=== PATIENT | male | born 1950 | race Caucasian/White ===

== ENCOUNTER 2019-12-14 05:48 | Outpatient (CLI) | payer MEDICARE, OTHER ==
[2019-12-14 16:43] LABS: #Eosinphils 0.2 thou/uL (0.0-0.7); #Lymphocytes 1.5 thou/uL (1.20-3.40); #Monocytes 0.5 thou/uL (0.11-0.59); #Neutrophils 3.6 thou/uL (1.40-6.50); %Basophils 0.4 % (0.0-1.0); %Eosinophils 3.6 % (0.0-10.0); %Lymphocytes 25.7 % (21.0-51.0); %Monocytes 8.3 % (0.0-10.0); Hemoglobin 14.8 g/dL (14.0-18.0); Mean Corpuscular HGB CONC 33.8 g/dL (32.0-36.0); Mean Corpuscular Hemoglobin 32.7 pg (27.0-31.0); Mean Corpuscular Volume 96.6 fL (78.0-98.0); Mean Platelet Volume 7.1 fL (7.4-10.4); Platelet Count 154 thou/uL (130-400); RBC Distribution Width 13.5 % (11.5-14.5); Red Blood Cell (RBC) Count 4.53 mill/uL (4.70-6.10); White Blood Cell (WBC) Count 5.8 thou/uL (4.8-10.8)
[2019-12-14 17:22] LABS: ALT (SGPT) 11 U/L (8-55); AST (SGOT) 19 U/L (5-34); Albumin 4.1 g/dL (3.4-4.8); Alkaline Phosphatase 79 U/L (40-110); Anion Gap 13 mmol/L (10-20); BUN (Urea Nitrogen) 10 mg/dL (8.4-25.7); Bilirubin, Total 0.9 mg/dL (0.2-1.2); Calc. Creatinine Clearance 0 mL/min (70-130); Calcium 8.9 mg/dL (7.8-10.44); Carbon Dioxide 25 mmol/L (23-31); Chloride 106 mmol/L (98-107); Estimated GFR-MDRD Greater than 90; Globulin 3.3 g/dL (2.4-3.5); Glucose 94 mg/dL (80-115); Protein, Total 7.4 g/dL (5.8-8.1); Sodium 140 mmol/L (136-145)
[2019-12-15 12:08] LABS: SARS-CoV-2 MS2 Positive; SARS-CoV-2 N Gene Negative; SARS-CoV-2 S Gene Negative; SARS-CoV-2 by NAA Not Detected (NotDetected); SARS-CoV-2 orf1ab Negative
== END 2019-12-14 05:49 | disposition home or self-care (01) ==
LOC: LABBT 05:48
PROVIDERS: ATTEND Internal Medicine Cardiovascular Disease
DX: Z01.812 Encounter for preprocedural laboratory examination (principal); Z11.59 Encounter for screening for other viral diseases
CPT/HCPCS: 80053; 85025; U0003; 87635

== ENCOUNTER 2020-02-15 07:34 | Outpatient (CLI) | payer MEDICARE, OTHER ==
[2020-02-15 14:12] LABS: Hemoglobin A1c 6.3 % (4.0-6.0)
[2020-02-15 14:15] LABS: Hemoglobin 15.2 g/dL (14.0-18.0); Mean Corpuscular HGB CONC 32.8 g/dL (32.0-36.0); Mean Corpuscular Hemoglobin 32.5 pg (27.0-31.0); Mean Corpuscular Volume 99.3 fL (78.0-98.0); Mean Platelet Volume 7.7 fL (7.4-10.4); Platelet Count 161 thou/uL (130-400); RBC Distribution Width 13.7 % (11.5-14.5); Red Blood Cell (RBC) Count 4.69 mill/uL (4.70-6.10); White Blood Cell (WBC) Count 5.5 thou/uL (4.8-10.8)
[2020-02-15 14:16] LABS: ALT (SGPT) 12 U/L (8-55); AST (SGOT) 19 U/L (5-34); Albumin 4.1 g/dL (3.4-4.8); Alkaline Phosphatase 90 U/L (40-110); Anion Gap 12 mmol/L (10-20); BUN (Urea Nitrogen) 16 mg/dL (8.4-25.7); Bilirubin, Direct 0.5 mg/dL (0.1-0.3); Calc. Creatinine Clearance 0 mL/min (70-130); Carbon Dioxide 27 mmol/L (23-31); Chloride 105 mmol/L (98-107); Estimated GFR-MDRD 69; Globulin 3.3 g/dL (2.4-3.5); Glucose 122 mg/dL (80-115); Potassium 4.1 mmol/L (3.5-5.1); Protein, Total 7.4 g/dL (5.8-8.1); Sodium 140 mmol/L (136-145)
[2020-02-15 14:38] LABS: INR-International Normal Ratio 1.1; PTT 31.1 sec (22.9-36.1); Prothrombin Time 14.8 sec (12.0-14.7)
[2020-02-15 15:37] LABS: Bacteria/HPF None Seen HPF (None Seen); Bilirubin Negative (Negative); Blood, Urine Negative (Negative); Clarity Extra Turbid (Clear); Glucose, Urine (Dipstick) 300 mg/dL (Negative); Ketone, Urine Negative (Negative); Leukocyte Negative Leu/uL (Negative); Nitrite Negative (Negative); Protein, Urine (Dipstick) 30 mg/dL (Neg-Trace); RBC/HPF 0-3 HPF (0-3); Specific Gravity, Urine 1.029 (1.002-1.036); Squamous Epithelial 0-3 HPF (0-3); WBC/HPF 0-3 HPF (0-3); pH, Urine 5.5 (5.0-9.0)
[2020-02-16 11:13] LABS: SARS-CoV-2 MS2 Positive; SARS-CoV-2 N Gene Negative; SARS-CoV-2 S Gene Negative; SARS-CoV-2 by NAA Not Detected (NotDetected); SARS-CoV-2 orf1ab Negative
== END 2020-02-15 07:35 | disposition home or self-care (01) ==
LOC: LABBT 07:34
PROVIDERS: ATTEND Urology
DX: Z01.812 Encounter for preprocedural laboratory examination (principal); D12.0 Benign neoplasm of cecum; Z20.828 Contact with and (suspected) exposure to other viral communicable diseases
CPT/HCPCS: 80053; 80076; 81001; 83036; 85027; 85610; 85730; 87086; 87635; U0003

== ENCOUNTER 2020-02-15 11:00 | Inpatient (IN) | payer MEDICARE ==
[2020-02-15 13:41] VITALS: BMI 39.5
[2020-02-19] MEDS ORDERED: Famotidine/PF 20 mg/2ml Vial ONE (06:17)
[2020-02-19] MEDS ORDERED: Fentanyl 100 MCG/2 ML VIAL ONE (06:17)
[2020-02-19] MEDS ORDERED: SUGAMMADEX SODIUM 500 MG/5 ML VIAL ONE (07:17)
[2020-02-19] MEDS ORDERED: cefOXitin Sodium/Dextrose 2 GM/50 ML BAG ONE ×2 (07:24→10:01)
[2020-02-19] MEDS ORDERED: CEFAZOLIN 1 GM VIAL ONE (07:24)
[2020-02-19] MEDS ORDERED: Sodium Chloride 0.9% 100 ML ONE (07:25)
[2020-02-19] MEDS ORDERED: Bupivacaine 0.25% 10 ML VIAL EPIDURAL PRN (08:00)
[2020-02-19] MEDS ORDERED: diphenhydrAMINE 50 MG/ML VIAL IM PRN (08:00)
[2020-02-19] MEDS ORDERED: Ondansetron PF 4 MG/2 ML Vial IVP PRN ×2 (08:00→10:43)
[2020-02-19] MEDS ORDERED: Hydrocerin (Eucerin) Cream 120 gm Jar TOP PRN (08:00)
[2020-02-19] MEDS ORDERED: Naloxone HCl 0.4 mg/ml Vial IVP PRN (08:00)
[2020-02-19] MEDS ORDERED: Naloxone HCl 0.4 mg/ml Vial IV PRN (08:00)
[2020-02-19] MEDS ORDERED: Promethazine HCl 25 MG/ML VIAL IM PRN ×3 (08:00→10:43)
[2020-02-19] MEDS ORDERED: traMADol HCl 50 MG TAB PO PRN ×2 (08:00)
[2020-02-19] MEDS ORDERED: HYDROcodone/Acetaminophen 5/325 mg Tablet PO PRN ×2 (08:00)
[2020-02-19] MEDS ORDERED: Promethazine HCl 25 MG SUPP PR PRN (08:00)
[2020-02-19] MEDS ORDERED: Bupivacaine 0.25% HCL 30 ML VIAL ONE (08:17)
[2020-02-19] MEDS ORDERED: Bupivacaine/Epinephrine 0.25% 30 ML VIAL ONE (08:51)
--- NOTE | 2020-02-19 09:57 | HP ---
CHIEF COMPLAINT: Unresectable polyp of cecum. HISTORY OF PRESENT ILLNESS: The patient is a 69-year-old male, who had undergone a colonoscopy showing a large polyp that extended into the appendiceal orifice. Biopsy was hyperplastic, but not resectable. He has had a laparotomy for a perforated ulcer and peritonitis. PAST MEDICAL HISTORY: Significant for eye surgery, tetanus vaccine, flu vaccine, hypertension, coronary artery disease, back problems. PAST SURGICAL HISTORY: He has had cholecystectomy and hernia repair. He had coronary artery bypass graft, cataract lens implants, had a laparotomy, partial gastrectomy. He had a knee replacement, excision of skin cyst. He has had a sleeve gastrectomy and had shoulder surgery. FAMILY HISTORY: Noncontributory. SOCIAL HISTORY: . No tobacco or alcohol. ALLERGIES: NO KNOWN DRUG ALLERGIES. PHYSICAL EXAMINATION: VITAL SIGNS: Height is 67.5, weight 257. Body mass index 39.6. GENERAL: This is an obese male, in no apparent distress. HEENT: Unremarkable. LUNGS: Clear. HEART: Regular rate and rhythm. ABDOMEN: There is a hypertrophic midline scar. No hernias. EXTREMITIES: Good pulses. No pedal edema. Unremarkable. ASSESSMENT: Large polyp of cecum. PLAN: Ileocecectomy. CONSENT: I have discussed planned procedure as well as risk of bleeding, infection, injury to bowel or bladder, leakage from anastomosis. He understands and gives informed consent. Job ID: [id number]
[2020-02-19] MEDS ORDERED: ceFOXitin 1 GM VIAL ONE (10:01)
[2020-02-19] MEDS ORDERED: Promethazine HCl 25 MG/ML VIAL SLOW IVP PRN (10:23)
[2020-02-19] MEDS ORDERED: Ondansetron HCl/PF 4 MG/2 ML Vial IVP PRN (10:23)
[2020-02-19] MEDS ORDERED: hydrALAZINE 20 MG/ML VIAL SLOW IVP PRN (10:43)
[2020-02-19] MEDS ORDERED: Morphine 4 MG/ML VIAL SLOW IVP PRN (10:43)
[2020-02-19] MEDS ORDERED: Morphine 10 MG/ML VIAL SLOW IVP PRN (10:43)
[2020-02-19] MEDS ORDERED: Morphine 2 MG/ML VIAL SLOW IVP PRN (10:43)
[2020-02-19] MEDS ORDERED: Dextrose 50% Abboject 50 ML SYRINGE SLOW IVP PRN (10:46)
[2020-02-19] MEDS ORDERED: Insulin Regular 300 UNITS/3 ML VIAL SC PRN (10:46)
[2020-02-19] MEDS ORDERED: Dextrose 5% in Water 1,000 ML IV PRN (10:46)
[2020-02-19] MEDS ORDERED: PHENYLEPHRINE-NS 100 MCG/ML 10 ML SYRINGE ONE (10:53)
[2020-02-19] MEDS ORDERED: Lidocaine 1.5% w/Epi 1:200K 30 ML VIAL (Epid Use) ONE (10:53)
[2020-02-19] MEDS ORDERED: Lidocaine 1% PF 5 ML VIAL ONE (10:53)
[2020-02-19] MEDS ORDERED: Glycopyrrolate 0.2 MG/ML 5 ML SYRINGE ONE (10:53)
[2020-02-19] MEDS ORDERED: Metoclopramide HCl 10 MG/2 ML VIAL ONE (10:53)
[2020-02-19] MEDS ORDERED: PROPOFOL 200 MG/20 ML VIAL ONE (10:53)
[2020-02-19] MEDS ORDERED: Ketorolac Tromethamine 30 MG/ML VIAL ONE (10:53)
[2020-02-19] MEDS ORDERED: Rocuronium Bromide 10 MG/ML (10ML VIAL) ONE (10:53)
[2020-02-19] MEDS ORDERED: Ondansetron PF 4 MG/2 ML Vial ONE (10:53)
[2020-02-19] MEDS: Ketorolac Tromethamine 30 MG/ML VIAL IVP SCH ×3 (12:34→23:12)
--- NOTE | 2020-02-19 15:19 | OP ---
DATE OF PROCEDURE: 02/19/2020 SERVICE: Urology. PREOPERATIVE DIAGNOSIS: Bilateral hydroceles. POSTOPERATIVE DIAGNOSIS: Bilateral hydroceles. PROCEDURE PERFORMED: Bilateral hydrocelectomy in a Jaboulay fashion. INDICATION FOR PROCEDURE: Mr. Valencia is a 69-year-old white male, who has a cecal polyp as well as bilateral hydroceles. He had elected to have a partial colectomy performed by Dr. Goodrich, concurrently with his bilateral hydrocele surgery. Risks and benefits were discussed and he has agreed to proceed forward. DESCRIPTION OF PROCEDURE: After identification of armband and verification of consent, the patient was brought back to the operating room, where he underwent general anesthesia with endotracheal intubation. He had an epidural placed preoperatively for pain control. He was then left in the supine position and prepped and draped in usual sterile fashion. After appropriate time-out, an incision was made on the midline of the scrotum along the median raphae using a 15 blade. Dissection was carried down through the scrotum using a combination of electrocautery along with sharp dissection. There was a mild amount of scrotal edema already present within the scrotum. Attention was then turned towards the left side and an incision was deviated away from the medial septum towards the left side. We went through the external internal spermatic fascia and cremasteric until the tunica vaginalis was identified. Dissection was then carried out between the internal spermatic fascia and tunica vaginalis until the entire hydrocele could be delivered outside the patient's body. The remaining tissues were swept away using a combination of blunt dissection and cautery dissection. Once the hydrocele was seen emanating from a clear stalk, the hydrocele was opened anteriorly, taking care to avoid the testicle, approximately 400 mL of straw-colored fluid was drained out of the left scrotum. The testicle appeared grossly normal without abnormalities. The appendix testis was removed. The tunica vaginalis was completely opened and then excised off taking care to avoid the epididymis for epididymal injury. Hemostasis was performed along the edge of the tunica vaginalis and then the edges of the tunica vaginalis were then marsupialized posteriorly beyond the testicle using a 4-0 Vicryl interrupted fashion. Meticulous hemostasis was performed of any additional bleeding areas and the testicle re-delivered back into the scrotum and irrigated out. Attention was turned to the right side using Allis clamps to hold the medial septum up, the dissection was carried out in the same fashion on the right side to clear out the right hemiscrotum. Once the tunica vaginalis was identified, dissection was carried out along the tunica vaginalis until the hydrocele sac could be delivered outside the hemiscrotum on the right side. In the same fashion, the hydrocele sac was entered anteriorly to avoid testicular injury, approximately 300 mL of straw-colored fluid drained out on this side and then irrigated away. The tunica vaginalis was then opened completely. The tunica vaginalis was then excised off the cord and sent off for routine pathologic evaluation along with the other tunic vaginalis from the contralateral side. This was then marsupialized in the same fashion as the other side using a 4-0 Vicryl interrupted fashion on the posterior aspect of the testicle. Meticulous hemostasis performed with any bleeding points along with the edges of the tunica vaginalis, which was also cauterized prior to the marsupialization. Once excellent hemostasis was achieved, the appendix testis was removed and the testicle re-delivered back into the scrotum. Using just a finger to identify a location to make a hole in the septum, a small hole was made with Bovie electrocautery for placement of a drain, the drain was inserted initially on the left inferior scrotum and then brought through a small loop made through the tissue to hold it in place of the internal spermatic fascia and then passed through the septum into the right hemiscrotum. The drain was sutured with a 3-0 nylon on the outside of the patient's body. After a thorough irrigation, the left hemiscrotum was initially closed using a 2-0 Vicryl to close the dartos and spermatic fascias and then, another 2-0 Vicryl was used to do the same thing on the right to close that side. The skin was then closed with a 4-0 Monocryl. Once cleaned up and all blood had been removed, Dermabond was applied. A Pal catheter was inserted into the patient under the sterile field with 10 mL of sterile water placed into the balloon. At this point, the patient was then had the drapes taken down and patient was began to be prepped in position for Dr. Goodrich's portion of the surgery for the partial colectomy. This will be dictated separately in Dr. Goodrich's operative report. For my portion of procedure; COMPLICATIONS: None. ESTIMATED BLOOD LOSS: Minimal. RETAINED TUBES AND DRAINS: A 10-Afghan JANET drain. SPECIMENS: Bilateral tunica vaginalis. DISPOSITION: The patient will undergo his surgery with Dr. Goodrich. Postoperatively, he will be admitted to Dr. Goodrich's service. The drain will probably need to stay in for approximately 5 to 7 days at which point, if the patient is still in the hospital, we can remove the drain. If he is discharged, we will remove the drain as an outpatient. Job ID: [id number]
[2020-02-19] MEDS ORDERED: cefOXitin 2 GM in Sodium Chloride 0.9% 100 ML IVPB SCH (16:00)
[2020-02-19] MEDS: Sodium Chloride 0.9% 1,000 ML IV SCH ×2 (16:35→21:11)
[2020-02-19] MEDS: cefOXitin Sodium/Dextrose,Iso 2 GM in Premix Bag 1 BAG IVPB SCH (17:24)
--- NOTE | 2020-02-19 18:04 | EKG ---
Test Reason : Blood Pressure : / mmHG Vent. Rate : 080 BPM Atrial Rate : 093 BPM P-R Int : 000 ms QRS Dur : 150 ms QT Int : 418 ms P-R-T Axes : 000 -38 129 degrees QTc Int : 482 ms Atrial fibrillation Left axis deviation Left bundle branch block Abnormal ECG No previous ECGs available Confirmed by DR. Gerri GALLAGHER ([id number]) on 02/19/2020 6:03:59 PM Referred By: ANDREW Confirmed By:DR. Gerri GALLAGHER
[2020-02-19] MEDS: Famotidine/PF 20 mg/2ml Vial SLOW IVP SCH (21:02)
[2020-02-19] MEDS: Famotidine 20 MG TAB PO SCH (21:05)
[2020-02-19] MEDS: Zolpidem Tartrate 5 MG TAB PO PRN (21:11)
[2020-02-19] MEDS: fentaNYL Citrate/PF 500 MCG, Bupivacaine 10 ML in Sodium Chloride 0.9% 80 ML EPIDURAL SCH (23:13)
[2020-02-20] MEDS: cefOXitin Sodium/Dextrose,Iso 2 GM in Premix Bag 1 BAG IVPB SCH (00:12)
[2020-02-20] MEDS: Sodium Chloride 0.9% 1,000 ML IV SCH ×3 (04:20→20:47)
[2020-02-20] MEDS: diphenhydrAMINE 50 MG/ML VIAL IVP PRN ×2 (04:20→12:14)
[2020-02-20 05:42] LABS: #Eosinphils 0.1 thou/uL (0.0-0.7); #Lymphocytes 0.7 thou/uL (1.20-3.40); #Monocytes 0.4 thou/uL (0.11-0.59); #Neutrophils 4.4 thou/uL (1.40-6.50); %Basophils 0.5 % (0.0-1.0); %Lymphocytes 12.5 % (21.0-51.0); %Monocytes 7.6 % (0.0-10.0); %Neutrophils 78.5 % (42.0-75.0); Hemoglobin 13.7 g/dL (14.0-18.0); Mean Corpuscular HGB CONC 33.3 g/dL (32.0-36.0); Mean Corpuscular Hemoglobin 32.6 pg (27.0-31.0); Mean Corpuscular Volume 98.1 fL (78.0-98.0); Platelet Count 121 thou/uL (130-400); RBC Distribution Width 13.5 % (11.5-14.5); Red Blood Cell (RBC) Count 4.21 mill/uL (4.70-6.10); White Blood Cell (WBC) Count 5.6 thou/uL (4.8-10.8)
[2020-02-20] MEDS: Ketorolac Tromethamine 30 MG/ML VIAL IVP SCH ×4 (05:46→23:26)
[2020-02-20 06:02] LABS: Anion Gap 12 mmol/L (10-20); BUN (Urea Nitrogen) 14 mg/dL (8.4-25.7); Calc. Creatinine Clearance 117 mL/min (70-130); Calcium 7.9 mg/dL (7.8-10.44); Carbon Dioxide 27 mmol/L (23-31); Chloride 104 mmol/L (98-107); Estimated GFR-MDRD 75; Glucose 104 mg/dL (80-115); Potassium 3.5 mmol/L (3.5-5.1); Sodium 139 mmol/L (136-145)
--- NOTE | 2020-02-20 06:48 | PDOC.GSPN ---
Surgery Progress Note: Subj - Subjective Patient reports: no new complaints, pain well controlled, no bowel movement, no flatus Surgery Progress Note: Obj - Vital signs Vital signs: Vital Signs - Most Recent Temp Pulse Resp BP Pulse Ox 98.4 F 99 16 124/76 92 L 02/20/20 04:05 02/20/20 04:05 02/20/20 04:05 02/20/20 04:05 02/20/20 04:05 - Physical Exam General: no distress, no pain Cardiovascular: regular rate and rhythm Respiratory: clear to auscultation, normal expansion Abdomen: soft, non tender, nondistended, other (Abdominal sutures and dressing intact. Small amount of blood on dressing. No increased pain at incision site.) Hernia: none Genitourinary (Male): other (Scrotal incision appears to be healing well. No erythema or purulence. Small amount of blood in drain.) Surgery Progress Note: Results - Labs Result Diagrams: 02/20/20 05:09 02/20/20 05:09 Lab results: Laboratory Results - last 12 hr 02/19/20 02/20/20 02/20/20 20:39 00:09 05:08 WBC RBC Hgb Hct MCV MCH MCHC RDW Plt Count MPV Neutrophils % Lymphocytes % Monocytes % Eosinophils % Basophils % Neutrophils # Lymphocytes # Monocytes # Eosinophils # Basophils # Sodium Potassium Chloride Carbon Dioxide Anion Gap BUN Creatinine Estimated GFR (MDRD) Glucose POC Glucose 103 H 114 H 107 H Calcium 02/20/20 02/20/20 05:09 05:09 WBC 5.6 RBC 4.21 L Hgb 13.7 L Hct 41.3 L MCV 98.1 H MCH 32.6 H MCHC 33.3 RDW 13.5 Plt Count 121 L MPV 7.0 L Neutrophils % 78.5 H Lymphocytes % 12.5 L Monocytes % 7.6 Eosinophils % 1.0 Basophils % 0.5 Neutrophils # 4.4 Lymphocytes # 0.7 L Monocytes # 0.4 Eosinophils # 0.1 Basophils # 0.0 Sodium 139 Potassium 3.5 Chloride 104 Carbon Dioxide 27 Anion Gap 12 BUN 14 Creatinine 0.99 Estimated GFR (MDRD) 75 Glucose 104 POC Glucose Calcium 7.9 Surgery Progress Note: A/P - Plan Plan: Patient is s/p bilateral hydrocelectomy and right sided hemicolectomy. Patient is doing well and pain is well controlled on epidural pain pump. Will advance diet to clear liquids today as tolerated. Monitor for bowel movement or increased abdominal pain. Continue regular wound care and dressing changes.
--- NOTE | 2020-02-20 06:52 | OP ---
DATE OF PROCEDURE: 02/19/2020 PREOPERATIVE DIAGNOSIS: Cecal polyp. PROCEDURE PERFORMED: Open right hemicolectomy. INDICATIONS: This is a 69-year-old male, who on colonoscopy was found to have a polyp at the appendiceal orifice. Biopsy was hyperplastic. FINDINGS: 1 cm polyp at the appendiceal orifice. DESCRIPTION OF PROCEDURE: After informed consent was obtained, the patient was taken to the operating room and given general endotracheal anesthesia, placed in the supine position. Abdomen was prepped and draped in usual fashion. A transverse right lateral incision was performed. Subcu divided sharply. The fascia was incised. The muscle was divided, the peritoneum opened. The right colon was mobilized sharply and delivered. The ileum was divided utilizing a JUNIOR and then the colon was divided utilizing a JUNIOR and the mesentery divided with the LigaSure. The specimen was opened in the operating room. There was a polyp present at the ileocecal valve. This was sent to Pathology for further analysis. Hemostasis was assured. A [id number] pro-peristaltic functional end-to-end anastomosis was performed. An enterotomy was performed in the antimesenteric aspect of the ileum and also antimesenteric staple line was excised. The JUNIOR 75 was inserted, one limb in each limb of bowel, approximated, closed, and fired. The common enterotomy was closed transversely with a 3-0 Stratafix. The mesentery was closed with interrupted 3-0 Vicryl. Hemostasis was assured. The abdomen was thoroughly irrigated and irrigation fluid removed. The abdominal wall was closed in layers, posterior layer with running 2-0 Vicryl, anterior layer with 2-0 Vicryl, Deepak's with interrupted 3-0 Vicryl, and the skin closed with a running subcuticular 4-0 Rapide. Steri-Strips applied. Sterile bandage applied. The patient tolerated the procedure well, transferred to Recovery in good condition. Sponge and needle count verified correct x2. Job ID: [id number]
--- NOTE | 2020-02-20 08:22 | PRG ---
DATE OF SERVICE: 02/20/2020 SUBJECTIVE: The patient is feeling good. His pain is minimal. No nausea or vomiting. Feels hungry. OBJECTIVE: VITAL SIGNS: His temperature is 98.4, pulse 99, blood pressure 124/76. GENERAL: He is awake, alert. ABDOMEN: Soft, nontender. His incision is healing well. There were a couple of sanguinous spots that are dry on his bandage. His bandage was changed. No evidence of infection. ASSESSMENT: Doing well. PLAN: Discontinue Pal. Ambulate sips of clear liquids. Job ID: [id number]
[2020-02-20] MEDS: Famotidine 20 MG TAB PO SCH ×2 (08:28→20:47)
[2020-02-20] MEDS: Famotidine/PF 20 mg/2ml Vial SLOW IVP SCH ×2 (08:28→20:47)
[2020-02-20] MEDS ORDERED: FLU VACC QS2020-21(65YR UP)/PF 240 MCG/0.7 ML SYRINGE IM ONE (09:00)
[2020-02-20] MEDS ORDERED: Enoxaparin Sodium 40 MG/0.4 ML SYRINGE SC SCH (09:00)
[2020-02-20] MEDS: fentaNYL Citrate/PF 500 MCG, Bupivacaine 10 ML in Sodium Chloride 0.9% 80 ML EPIDURAL SCH ×2 (12:36→23:53)
--- NOTE | 2020-02-20 13:46 | PRG ---
DATE OF SERVICE: 02/20/2020 SUBJECTIVE: The patient states he is feeling very good. He has minimal pain. His epidural is working very well. He has a Pal catheter in, which apparently has been draining fine. He is not complaining of any pain. OBJECTIVE: VITAL SIGNS: Temperature 98.5, pulse respirations 20, blood pressure 135/79, saturations 94% on room air. GENERAL: In no apparent distress. Communicative, alert. CARDIOVASCULAR: Regular rate and rhythm. ABDOMEN: Soft, nontender, and nondistended. Incision is currently dressed with a small amount of spotting of blood. : Pal catheter in place, draining jennifer-colored urine. Scrotum is mildly edematous, nontender. Incision is clean, dry, and intact. JANET has serosanguineous output. EXTREMITIES: Stable. Mild edema bilaterally. LABORATORY EVALUATION: The full set of labs is in the [facility] system, which I have reviewed. Of note, white count is 5.6, hemoglobin 13.7. Creatinine of 0.99. ASSESSMENT AND PLAN: A 69-year-old white male with a cecal polyp as well as bilateral hydrocele, status post bilateral hydrocelectomies and partial colectomy by Dr. Goodrich, postop day #1. The patient appears to be doing very well from my standpoint. His catheter can be removed whenever it is appropriate by the General Surgery team, most likely after his epidural has been removed. I would recommend he keep the JANET drain in for several days. Before the patient is ready for discharge, I would like to come back and see the patient to see how much drain output he is having from his scrotum. If it is moderate to significant, I will have him discharged with a JANET drain in place and remove it in the office on his followup. If, however, he has [id number] output from his JANET drain, I will remove it prior to his discharge. Please notify me when the patient is ready to be discharged. Otherwise, there is nothing further I would need to add at the current time other than the patient should continue wearing his jockstrap while he is in the hospital. Job ID: [id number]
[2020-02-20] MEDS: diphenhydrAMINE 25 MG CAP PO PRN (17:07)
[2020-02-21] MEDS: Sodium Chloride 0.9% 1,000 ML IV SCH ×4 (05:02→23:31)
[2020-02-21] MEDS: Ketorolac Tromethamine 30 MG/ML VIAL IVP SCH (05:03)
[2020-02-21] MEDS: Famotidine/PF 20 mg/2ml Vial SLOW IVP SCH ×3 (09:44→21:16)
[2020-02-21] MEDS: Famotidine 20 MG TAB PO SCH ×2 (09:44→20:53)
[2020-02-21] MEDS: diphenhydrAMINE 25 MG CAP PO PRN ×2 (09:47→18:42)
[2020-02-21] MEDS: fentaNYL Citrate/PF 500 MCG, Bupivacaine 10 ML in Sodium Chloride 0.9% 80 ML EPIDURAL SCH (13:06)
--- NOTE | 2020-02-21 17:25 | PDOC.FMACP ---
Advance Care Planning - Problem (1) Palliative care encounter Status: Acute Code(s): Z51.5 - ENCOUNTER FOR PALLIATIVE CARE (2) Perforated ulcer Status: Acute Code(s): K27.5 - CHRONIC OR UNSP PEPTIC ULCER, SITE UNSP, WITH PERFORATION - Note Participants: patient, palliative care Summary: Revisited Advanced Care Planning, opportunity to decline. The diagnosis, prognosis and goals of care were discussed. Appropriate forms and documentation to accomplish the goals of care were discussed. [place] confirmed the directive to physician on record remain correct and his spouse is surrogate decision maker if needed. Continue currently with all aggressive measures. The Palliative Care Team will assist with completion of any outstanding forms as identified. Time Spent (mins): 15
[2020-02-21] MEDS ORDERED: cloNIDine 0.1 MG TAB PO SCH (20:45)
[2020-02-21] MEDS: diphenhydrAMINE 50 MG/ML VIAL IVP PRN (21:11)
[2020-02-21] MEDS: Zolpidem Tartrate 5 MG TAB PO PRN (21:12)
[2020-02-21] MEDS: Enoxaparin Sodium 40 MG/0.4 ML SYRINGE SC SCH (21:15)
[2020-02-21 23:56] LABS: #Eosinphils 0.2 thou/uL (0.0-0.7); #Lymphocytes 0.7 thou/uL (1.20-3.40); #Monocytes 0.4 thou/uL (0.11-0.59); #Neutrophils 3.5 thou/uL (1.40-6.50); %Basophils 0.9 % (0.0-1.0); %Eosinophils 3.6 % (0.0-10.0); %Lymphocytes 14.5 % (21.0-51.0); %Monocytes 8.1 % (0.0-10.0); Hemoglobin 13.1 g/dL (14.0-18.0); Mean Corpuscular HGB CONC 33.7 g/dL (32.0-36.0); Mean Corpuscular Hemoglobin 32.8 pg (27.0-31.0); Mean Corpuscular Volume 97.3 fL (78.0-98.0); Mean Platelet Volume 7.4 fL (7.4-10.4); Platelet Count 108 thou/uL (130-400); RBC Distribution Width 13.1 % (11.5-14.5); White Blood Cell (WBC) Count 4.7 thou/uL (4.8-10.8)
[2020-02-22 00:11] LABS: Anion Gap 11 mmol/L (10-20); BUN (Urea Nitrogen) 7 mg/dL (8.4-25.7); Calc. Creatinine Clearance 155 mL/min (70-130); Calcium 7.7 mg/dL (7.8-10.44); Carbon Dioxide 24 mmol/L (23-31); Chloride 105 mmol/L (98-107); Estimated GFR-MDRD Greater than 90; Glucose 105 mg/dL (80-115); Potassium 3.5 mmol/L (3.5-5.1); Sodium 136 mmol/L (136-145)
[2020-02-22] MEDS ORDERED: Furosemide 40 MG TAB PO PRN (00:21)
[2020-02-22] MEDS: fentaNYL Citrate/PF 500 MCG, Bupivacaine 10 ML in Sodium Chloride 0.9% 80 ML EPIDURAL SCH (00:30)
--- NOTE | 2020-02-22 03:26 | CON ---
DATE OF CONSULTATION: TIME OF ASSESSMENT: 2099. REFERRING PHYSICIAN: Dr. Goodrich. REASON FOR CONSULTATION: Medical management. CHIEF COMPLAINT: None. HISTORY OF PRESENT ILLNESS: Mr. Valencia is a 69-year-old gentleman who is status post open right hemicolectomy done 02/19/2020 after undergoing a colonoscopy that showed a large polyp extending into the appendiceal orifice that could not be removed via scope. He has a history of undergoing laparotomy for perforated ulcer and peritonitis. The procedure today was done by Dr. Goodrich. He also had bilateral hydrocelectomy done by Dr. High today. The patient states that the scrotal swelling has improved significantly and he denies any associated discomfort. He has a JANET drain in place, which he states will be removed tomorrow. He has a history of hypertension, diabetes, CAD, hyperlipidemia, and chronic atrial fibrillation. Apparently, his blood pressure has been elevated today and we have been consulted for medical management. The patient states he feels well at this moment and denies any complaints. He has been tolerating oral intake and had some soup without any nausea or vomiting. Denies any abdominal discomfort. He has been passing flatus. Denies any bowel movement yet. No urinary symptoms. No headaches or dizziness. No chest pain, palpitations, or shortness of breath. All other review of systems are negative. Of note, the patient underwent a catheterization on 12/19/[address] Aggarwal during which he was found to have 85% stenosis of proximal LAD, 45% stenosis of distal LAD, 75% stenosis of first OM, and 60% stenosis of proximal circumferential, 90% stenosis of mid RCA. He has severe multivessel disease with patent graft to LAD, RCA and OMB. The EF was 40% to 45% on recent echo. PAST MEDICAL HISTORY: 1. Hyperlipidemia. 2. Hypertension. 3. Type 2 diabetes mellitus. 4. Erectile dysfunction. 5. CAD. 6. PAD. 7. Chronic atrial fibrillation. 8. Aortic stenosis. 9. Cardiomyopathy. PAST SURGICAL HISTORY: 1. CABG x3. 2. Cholecystectomy. 3. Hernia repair. 4. Cataract extraction. 5. Right shoulder replacement. 6. Left knee replacement. 7. Right knee replacement. 8. Repair of an ulcer in 2017. 9. Pericardial window after CABG in 2007. 10. Laparotomy for a perforated ulcer and peritonitis. 11. Open right hemicolectomy on 02/19/2020. 12. Bilateral hydrocelectomy, 02/19/2020. 13. Gastric sleeve. 14. Excision of a skin cyst. FAMILY HISTORY: Noncontributory. Father , emphysema. His brother had an IL in the past. Mother . SOCIAL HISTORY: The patient is . Lives with his . Denies any tobacco use, alcohol consumption, or illicit drug use. ALLERGIES: NO KNOWN DRUG ALLERGIES. CURRENT MEDICATIONS: 1. Hydrocodone. 2. Tramadol. 3. Lyrica. 4. Furosemide 40 mg p.o. daily. 5. Celebrex. 6. Pantoprazole 40 mg p.o. daily. 7. Metformin. 8. Eliquis. 9. Metoprolol succinate. 10. Simvastatin. PHYSICAL EXAMINATION: GENERAL: The patient appears well developed, well nourished, and resting comfortably. He is in no acute distress. VITAL SIGNS: Temperature 98.4, pulse 75, respirations 18, O2 saturation 97% on room air. Blood pressure 171/114, repeat was 157/106. HEENT: Normocephalic and atraumatic. Pupils are equal, round, and reactive to light. Sclerae icterus. Oropharynx is clear. NECK: Supple. CARDIAC: Normal heart sounds, S1, S2. LUNGS: Clear to auscultation bilaterally without wheezes, rales, or rhonchi. ABDOMEN: Soft, obese, slightly distended, but nontender. Dressing to the right side of abdomen with no signs of infection or excessive bleeding. Bowel sounds present. EXTREMITIES: Notable for +1 edema bilaterally. NEUROLOGIC: Alert and oriented x3. : The patient with edema of the scrotum, nontender. JANET drain in place with serosanguineous output. IMPRESSION AND PLAN: Mr. Valencia is status post open right hemicolectomy and bilateral hydrocelectomy done today who has been referred for medical management of the following. 1. Hypertension. Home medications have been reconciled. However, he is not normally due for any blood pressure medications this evening. He was given clonidine 0.1 mg p.o. x1. He does have IV fluids going at a rate of 120 mL/h. Given the elevated blood pressure and the history of heart failure/fluid retention for which he takes Lasix at home, we will reduce the IV fluids to 75 mL an hour. We will repeat labs including BNP. Continue to monitor blood pressure. 2. Diabetes mellitus. Monitor blood glucose. Continue insulin sliding scale. 3. Cardiomyopathy. As mentioned, we will decrease IV fluids to 75 an hour. We will resume Lasix if appropriate pending repeat renal function, to be done this evening. We will check BNP. 4. Chronic atrial fibrillation. The patient has been off Eliquis since 02/14/2020 in preparation for surgery. We will obtain repeat baseline EKG. Day Team to decide when the patient may resume his Eliquis. It appears he has been started on DVT prophylaxis with Lovenox 40 mg subcutaneous since yesterday evening. This has already been given today. Consider restarting Eliquis tomorrow morning. Restart home medications as appropriate. 5. Gastrointestinal prophylaxis with famotidine. 6. Hyperlipidemia. Statin has been restarted. Thank you for this consultation. We will continue to follow this patient with you. Case discussed with the attending who agrees with plan of care as described above. Job ID: [id number]
[2020-02-22 06:34] LABS: Anion Gap 10 mmol/L (10-20); BUN (Urea Nitrogen) 7 mg/dL (8.4-25.7); Calc. Creatinine Clearance 166 mL/min (70-130); Calcium 7.6 mg/dL (7.8-10.44); Carbon Dioxide 23 mmol/L (23-31); Chloride 107 mmol/L (98-107); Estimated GFR-MDRD Greater than 90; Glucose 83 mg/dL (80-115); Potassium 3.7 mmol/L (3.5-5.1); Sodium 136 mmol/L (136-145)
[2020-02-22 07:00] LABS: #Eosinphils 0.2 thou/uL (0.0-0.7); #Monocytes 0.5 thou/uL (0.11-0.59); #Neutrophils 2.9 thou/uL (1.40-6.50); %Eosinophils 4.6 % (0.0-10.0); %Lymphocytes 22.1 % (21.0-51.0); %Monocytes 9.8 % (0.0-10.0); %Neutrophils 63.5 % (42.0-75.0)
[2020-02-22 07:09] LABS: Hemoglobin 13.2 g/dL (14.0-18.0); Mean Corpuscular HGB CONC 33.1 g/dL (32.0-36.0); Mean Corpuscular Hemoglobin 33.3 pg (27.0-31.0); Mean Platelet Volume 7.2 fL (7.4-10.4); Platelet Count 94 thou/uL (130-400); RBC Distribution Width 13.1 % (11.5-14.5); Red Blood Cell (RBC) Count 3.96 mill/uL (4.70-6.10); White Blood Cell (WBC) Count 4.5 thou/uL (4.8-10.8)
[2020-02-22] MEDS: Famotidine 20 MG TAB PO SCH ×2 (08:03→20:45)
[2020-02-22] MEDS: Pregabalin 75 MG CAP PO SCH (08:04)
[2020-02-22] MEDS: diphenhydrAMINE 25 MG CAP PO PRN (08:04)
[2020-02-22] MEDS: Atorvastatin Calcium 10 MG TAB PO SCH (08:04)
[2020-02-22] MEDS: Famotidine/PF 20 mg/2ml Vial SLOW IVP SCH (08:34)
[2020-02-22 08:58] LABS: MDiff Complete? YES
[2020-02-22] MEDS: Sodium Chloride 0.9% 1,000 ML IV SCH (09:15)
--- NOTE | 2020-02-22 11:52 | PDOC.HOSPP ---
- Subjective Encounter Date: 02/22/20 Encounter Time: 09:50 Subjective: is sitting in chair, no sob says he always has some edema in his legs he sees for cardiology is passing flatus no bm yet, is ambulating in room at bedside - Objective Vital Signs & Weight: Vital Signs (12 hours) Temp Pulse Resp BP Pulse Ox 02/22/20 08:00 98.4 F 78 18 143/95 H 96 02/22/20 04:00 98.3 F 78 17 143/95 H 93 L Weight Weight 260 lb I&O: 02/21/20 02/22/20 02/23/20 06:59 06:59 06:59 Intake Total 3280 3925 Output Total 605 1625 Balance 2675 2300 Result Diagrams: 02/22/20 04:29 02/22/20 04:23 Additional Labs: Accuchecks 02/22/20 02/22/20 02/21/20 10:47 05:57 23:16 POC Glucose 129 H 86 103 H 02/21/20 15:29 POC Glucose 73 Hospitalist ROS - Medication Medications: Active Medications Generic Name Dose Route Start Last Admin Trade Name Freq PRN Reason Stop Dose Admin Atorvastatin Calcium 10 mg 02/22/20 09:00 02/22/20 08:04 Atorvastatin Calcium 10 Mg Tab PO 10 mg QAM GUME Administration Diphenhydramine HCl 25 mg 02/19/20 08:00 02/22/20 08:04 Diphenhydramine 25 Mg Cap PO 25 mg Q3H PRN Administration Itching Diphenhydramine HCl 25 mg 02/19/20 08:00 02/21/20 21:11 Diphenhydramine 50 Mg/Ml Vial IVP 25 mg Q3H PRN Administration Itching Enoxaparin Sodium 40 mg 02/21/20 21:00 02/21/20 21:15 Enoxaparin Sodium 40 Mg/0.4 Ml Syringe SC 40 mg 2100 GUME Administration Famotidine 20 mg 02/19/20 21:00 02/22/20 08:03 Famotidine 20 Mg Tab PO 20 mg Q12HR GUME Administration Famotidine 20 mg 02/19/20 21:00 02/22/20 08:34 Famotidine/Pf 20 Mg/2ml Vial SLOW IVP Not Given Q12HR GUME Fentanyl Citrate 500 mcg/ 100 mls @ 8 mls/hr 02/19/20 08:00 02/22/20 00:30 Bupivacaine HCl 10 ml/ Sodium EPIDURAL 100 mls Chloride INF GUME Administration Sodium Chloride 1,000 mls @ 75 mls/hr 02/21/20 23:25 02/22/20 09:15 Normal Saline 0.9% IV 1,000 mls .[id number] GUME Administration Metoprolol Succinate 25 mg 02/22/20 09:00 02/22/20 08:04 Metoprolol Succinate Xl 25 Mg Tab PO 25 mg DAILY GUME Administration Pregabalin 150 mg 02/22/20 09:00 02/22/20 08:04 Pregabalin 75 Mg Cap PO 150 mg QAM GUME Administration Zolpidem Tartrate 5 mg 02/19/20 08:00 02/21/20 21:12 Zolpidem Tartrate 5 Mg Tab PO 5 mg HSPRN PRN Administration Insomnia - Exam General Appearance: awake alert Eye: PERRL, anicteric sclera ENT: no oropharyngeal lesions, moist mucosa Neck: supple, no JVD Heart: RRR, no murmur Respiratory: no wheezes, no rales Gastrointestinal: soft, distended Extremities: no cyanosis, 1+ LE edema Neurological: cranial nerve grossly intact, no focal deficits Psychiatric: normal affect, A&O x 3 Hosp A/P (1) S/P right hemicolectomy Code(s): Z90.49 - ACQUIRED ABSENCE OF OTHER SPECIFIED PARTS OF DIGESTIVE TRACT Status: Acute (2) CAD (coronary artery disease) Code(s): I25.10 - ATHSCL HEART DISEASE OF [place] CORONARY ARTERY W/O ANG PCTRS Status: Chronic Qualifiers: Coronary Disease-Associated Artery/Lesion type: bypass graft [place] vs. transplanted heart: [place] heart Associated angina: without angina Qualified Code(s): I25.810 - Atherosclerosis of coronary artery bypass graft(s) without angina pectoris (3) HTN (hypertension) Code(s): I10 - ESSENTIAL (PRIMARY) HYPERTENSION Status: Chronic Qualifiers: Hypertension type: essential hypertension Qualified Code(s): I10 - Essential (primary) hypertension (4) Dyslipidemia Code(s): E78.5 - HYPERLIPIDEMIA, UNSPECIFIED Status: Chronic (5) DM type 2 (diabetes mellitus, type 2) Status: Chronic Qualifiers: Diabetes mellitus usp insulin use: without terminal make up operator use (6) Afib Code(s): I48.91 - UNSPECIFIED ATRIAL FIBRILLATION Status: Chronic Qualifiers: Atrial fibrillation type: paroxysmal Qualified Code(s): I48.0 - Paroxysmal atrial fibrillation (7) Obesity (BMI 30-39.9) Code(s): E66.9 - OBESITY, UNSPECIFIED Status: Chronic - Plan is recovering post right hemicolectomy is currently on liq diet and tolerating it has localized abd wall edema at the surgical site in addition to chr lower extr edema has a drain from his groin hydrocele surgery site has multiple medical issues continue lasix, lipitor, toprol xl, lyrica, nebs may dc iv fluids if he is tolerating oral diet
[2020-02-22] MEDS ORDERED: HYDROcodone/Acetaminophen 10/325 mg Tablet PO PRN (12:47)
--- NOTE | 2020-02-22 18:02 | EKG ---
Test Reason : STAT Blood Pressure : / mmHG Vent. Rate : 088 BPM Atrial Rate : 091 BPM P-R Int : 000 ms QRS Dur : 142 ms QT Int : 390 ms P-R-T Axes : 000 -35 155 degrees QTc Int : 471 ms Atrial fibrillation Left axis deviation Left bundle branch block Abnormal ECG When compared with ECG of 19-FEB-2020 07:14, T wave inversion more evident in Anterolateral leads Confirmed by DR. Gerri GALLAGHER ([id number]) on 02/22/2020 6:01:31 PM Referred By: REBEKA Confirmed By:DR. Gerri GALLAGHER
[2020-02-22] MEDS: HYDROcodone/Acetaminophen 10/325 mg Tablet PO PRN (18:12)
[2020-02-22] MEDS: Furosemide 40 MG TAB PO SCH (20:45)
[2020-02-22] MEDS: Enoxaparin Sodium 40 MG/0.4 ML SYRINGE SC SCH (20:45)
[2020-02-23] MEDS: HYDROcodone/Acetaminophen 10/325 mg Tablet PO PRN ×2 (01:09→09:47)
[2020-02-23] MEDS: Pregabalin 75 MG CAP PO SCH (08:49)
[2020-02-23] MEDS: Atorvastatin Calcium 10 MG TAB PO SCH (08:51)
[2020-02-23] MEDS: Furosemide 40 MG TAB PO SCH (08:51)
[2020-02-23] MEDS: Famotidine 20 MG TAB PO SCH (09:49)
[2020-02-23 11:45] VITALS: BP 147/85; TEMP 98.2
--- NOTE | 2020-02-23 11:48 | PDOC.HOSPP ---
- Subjective Encounter Date: 02/23/20 Encounter Time: 11:15 Subjective: is passing flatus, no bm yet is tolerating liq diet ambulating in hallway, at bedside - Objective Vital Signs & Weight: Vital Signs (12 hours) Temp Pulse Resp BP BP Pulse Ox 02/23/20 11:15 98.2 F 81 16 147/85 H 94 L 02/23/20 08:50 95 02/23/20 07:10 98.5 F 77 14 140/74 95 02/23/20 03:11 98.3 F 93 16 157/98 H 95 02/23/20 00:00 98.4 F 93 16 135/86 93 L Weight Weight 260 lb I&O: 02/22/20 02/23/20 02/24/20 06:59 06:59 06:59 Intake Total 3925 3087 Output Total 1625 1600 Balance 2300 1487 Result Diagrams: 02/22/20 04:29 02/22/20 04:23 Additional Labs: Accuchecks 02/23/20 02/23/20 02/22/20 11:02 05:36 23:41 POC Glucose 139 H 102 H 166 H Hospitalist ROS - Medication Medications: Active Medications Generic Name Dose Route Start Last Admin Trade Name Freq PRN Reason Stop Dose Admin Hydrocodone Bitart/Acetaminophen 2 tab 02/22/20 12:47 02/23/20 09:47 Hydrocodone/Acetaminophen 10/325 Mg Tablet PO 2 tab Q4H PRN Administration Pain 5-8 Atorvastatin Calcium 10 mg 02/22/20 09:00 02/23/20 08:51 Atorvastatin Calcium 10 Mg Tab PO 10 mg QAM GUME Administration Diphenhydramine HCl 25 mg 02/19/20 08:00 02/22/20 08:04 Diphenhydramine 25 Mg Cap PO 25 mg Q3H PRN Administration Itching Diphenhydramine HCl 25 mg 02/19/20 08:00 02/21/20 21:11 Diphenhydramine 50 Mg/Ml Vial IVP 25 mg Q3H PRN Administration Itching Enoxaparin Sodium 40 mg 02/21/20 21:00 02/22/20 20:45 Enoxaparin Sodium 40 Mg/0.4 Ml Syringe SC 40 mg 2100 GUME Administration Famotidine 20 mg 02/19/20 21:00 02/23/20 09:49 Famotidine 20 Mg Tab PO 20 mg Q12HR GUME Administration Furosemide 40 mg 02/22/20 21:00 02/23/20 08:51 Furosemide 40 Mg Tab PO 40 mg BID GUME Administration Metoprolol Succinate 25 mg 02/22/20 09:00 02/23/20 09:46 Metoprolol Succinate Xl 25 Mg Tab PO Not Given DAILY GUME Pregabalin 150 mg 02/22/20 09:00 02/23/20 08:49 Pregabalin 75 Mg Cap PO 150 mg QAM GUME Administration Zolpidem Tartrate 5 mg 02/19/20 08:00 02/21/20 21:12 Zolpidem Tartrate 5 Mg Tab PO 5 mg HSPRN PRN Administration Insomnia - Exam General Appearance: awake alert Eye: PERRL, anicteric sclera ENT: no oropharyngeal lesions, moist mucosa Neck: supple, no JVD Heart: RRR, murmur present Respiratory: no wheezes, no rales Gastrointestinal: soft, non-tender, no guarding, no rigidity Extremities: no cyanosis, 1+ LE edema Neurological: cranial nerve grossly intact, no focal deficits Psychiatric: normal affect, A&O x 3 Hosp A/P (1) S/P right hemicolectomy Code(s): Z90.49 - ACQUIRED ABSENCE OF OTHER SPECIFIED PARTS OF DIGESTIVE TRACT Status: Acute (2) CAD (coronary artery disease) Code(s): I25.10 - ATHSCL HEART DISEASE OF [place] CORONARY ARTERY W/O ANG PCTRS Status: Chronic Qualifiers: Coronary Disease-Associated Artery/Lesion type: bypass graft [place] vs. transplanted heart: [place] heart Associated angina: without angina Qualified Code(s): I25.810 - Atherosclerosis of coronary artery bypass graft(s) without an paul pectoris (3) HTN (hypertension) Code(s): I10 - ESSENTIAL (PRIMARY) HYPERTENSION Status: Chronic Qualifiers: Hypertension type: essential hypertension Qualified Code(s): I10 - Essential (primary) hypertension (4) Dyslipidemia Code(s): E78.5 - HYPERLIPIDEMIA, UNSPECIFIED Status: Chronic (5) DM type 2 (diabetes mellitus, type 2) Status: Chronic Qualifiers: Diabetes mellitus terminal operations supervisor insulin use: without terminal operations supervisor use (6) Afib Code(s): I48.91 - UNSPECIFIED ATRIAL FIBRILLATION Status: Chronic Qualifiers: Atrial fibrillation type: paroxysmal Qualified Code(s): I48.0 - Paroxysmal atrial fibrillation (7) Obesity (BMI 30-39.9) Code(s): E66.9 - OBESITY, UNSPECIFIED Status: Chronic - Plan is recovering post right hemicolectomy is currently on liq diet and tolerating it has localized abd wall edema at the surgical site in addition to chr lower extr edema has a drain from his groin hydrocele surgery site has multiple medical issues continue lasix, lipitor, toprol xl, lyrica, nebs to ambulate in hallway, advance diet per gen surg adv off IV fluids from yesterday, hemostable
--- NOTE | 2020-02-23 13:54 | PRG ---
DATE OF SERVICE: 02/23/2020 SUBJECTIVE: The patient states he is feeling very good. His epidural has been removed. His catheter has also been removed. He is voiding on his own. His JANET has been putting out extremely small amounts of fluid. He is not complaining of any significant scrotal pain. He states he is going to be discharged today. OBJECTIVE: VITAL SIGNS: Temperature 98.2, pulse 81, respirations 16, blood pressure 147/85, and saturation 94% on room air. GENERAL: No apparent distress. Communicative. Alert. CARDIOVASCULAR: rate. Symmetric pulses. ABDOMEN: Soft, nontender, nondistended. Incision is clean, dry, and intact. : Jockstrap in place. Incision is clean, dry, and intact. JANET with scant amount of serous fluid. EXTREMITIES: 1+ edema bilaterally. ASSESSMENT AND PLAN: A 69-year-old white male, status post bilateral hydrocelectomy and partial colectomy by Dr. Goodrich, currently about to be discharged home. I would recommend the JANET to be removed at this time as it is not putting out much fluid. I recommended the patient keep a jockstrap on, perform light activities for the next 2 to 3 weeks and avoid submerging under water. I will plan to see him back on Wednesday for a postoperative check. He will keep his appointment with Dr. Goodrich as well. Job ID: [id number]
--- NOTE | 2020-02-24 02:08 | DIS ---
DATE OF ADMISSION: 02/19/2020 DATE OF DISCHARGE: 02/23/2020 DISCHARGE DIAGNOSES: Polyp of right colon, bilateral hydroceles. PROCEDURES DURING ADMISSION: Open right hemicolectomy, hydrocelectomy. HOSPITAL COURSE: The patient was admitted, taken to the operating room where he underwent 1st wall bilateral hydrocelectomy and then open right hemicolectomy. Postoperatively, he has done well. He had an epidural for awhile that was removed and a Pal catheter was removed. He is urinating well. He is passing gas but has not had a good bowel movement yet, but he is tolerating liquids well. His pain is controlled on p.o. medications. He is discharged home on hydrocodone and Zofran. He will follow up with me in 2 weeks and also with Dr. High. Job ID: [id number]
--- NOTE | 2020-02-26 04:22 | PQF ---
CLINICAL DOCUMENTATION CLARIFICATION FORM: Dear : Bereket Goodrich Date / Time: 02/26/2020421 Please exercise your independent, professional judgment in responding to the clarification form. Clinical indicators are provided on the bottom of this form for your review Please check appropriate box(es) to clarify if the following diagnosis has been ruled in our ruled out: Peptic ulcer with perforation [ ] Ruled in diagnosis [ ] Continue to treat [ ] Resolved [ ] Ruled out diagnosis [ ] Improving [ ] Cannot rule out diagnosis [ ] Other diagnosis [ ] Unable to determine Physician Signature: Date/Time: For continuity of documentation, please document condition throughout progress notes and discharge summary. Thank You. To be completed by CDI/Coding staff for physician review: Present Clinical Indicators - Signs / Symptoms / Labs Results and Location in Medical Record [X] BP 108/74, Pulse 91, Resp 18, Temp 96.8 Vital signs 02/18 [X] He has had a laporatomy for a perforated ulcer and peritonitis H&P p1 02/18 Dr Goodrich [X] Perforated ulcer Advance Care planning note Yuliet PORTFOLIO LEAD 02/20 Present Risk Factors Results and Location in Medical Record [X] 69 year-old Male H&P p1 02/18 Dr Goodrich [X] Cecum polyp H&P p1 02/18 Dr Goodrich [X] DM H&P p1 02/18 Dr Goodrich [X] Obesity PN 02/21 Dr. Stewart Present Treatments Results and Location in Medical Record [X] IV Cefaxolin 2 gm JUL 24 [X] IV Pepcid 20 mg MAR 02/18 [X] Toradol 15 mg oral JUL 24 [X] IVF NS 1L JUL 24 [X] Hemicolectomy Operative report Dr Goodrich 02/18 CDS/Developing Machine Tender Signature: Cristina Yoderelgin Phone #: ext [phone] Date/Time: 02/26/2020421 This is a permanent part of the Medical Record [facility]
== END 2020-02-23 12:50 | disposition home or self-care (01) | DRG 329 ==
LOC: SURG A 02-19 05:35
PROVIDERS: ADMIT Urology; ATTEND Urology
PROC: 0DBF0ZZ Excision of Right Large Intestine, Open Approach (ICD-10-PCS; principal; 2020-02-19)
PROC: 0VB70ZZ Excision of Left Tunica Vaginalis, Open Approach (ICD-10-PCS; 2020-02-19)
PROC: 0VB60ZZ Excision of Right Tunica Vaginalis, Open Approach (ICD-10-PCS; 2020-02-19)
DX: K63.5 Polyp of colon (principal); N43.3 Hydrocele, unspecified; K27.5 Chronic or unspecified peptic ulcer, site unspecified, with perforation; I25.10 Atherosclerotic heart disease of native coronary artery without angina pectoris; I10 Essential (primary) hypertension; I48.0 Paroxysmal atrial fibrillation; E11.51 Type 2 diabetes mellitus with diabetic peripheral angiopathy without gangrene; I35.0 Nonrheumatic aortic (valve) stenosis; Z96.611 Presence of right artificial shoulder joint; Z96.653 Presence of artificial knee joint, bilateral; E66.01 Morbid (severe) obesity due to excess calories; Z94.9 Transplanted organ and tissue status, unspecified; Z95.1 Presence of aortocoronary bypass graft; Z98.49 Cataract extraction status, unspecified eye; Z90.3 Acquired absence of stomach [part of]; Z68.39 Body mass index [BMI] 39.0-39.9, adult; Z90.49 Acquired absence of other specified parts of digestive tract; Z79.899 Other long term (current) drug therapy; Z79.84 Long term (current) use of oral hypoglycemic drugs; Z79.82 Long term (current) use of aspirin; Z79.01 Long term (current) use of anticoagulants
CPT/HCPCS: 36415; 36416; 80048; 83880; 85025; 88302; 88307; 88342; 93005; 93010; J0690; J0694; J1200; J1650; J1885; J2001; J2405; J2704; J2765; J3010; J3490; Q0163; S0020; S0028

== ENCOUNTER 2020-02-15 11:11 | Outpatient (CLI) | payer MEDICARE ==
--- NOTE | 2020-02-15 16:09 | RAD ---
SINGLE VIEW OF THE CHEST AND RIGHT RIB SERIES: 02/15/20 HISTORY: Rib and chest pain after fall one year ago. FINDINGS: A single view of the chest and four views of the right ribs were performed. The heart is upper limits of normal in size. The patient is status post sternotomy. There is no evidence of consolidation, mas s or pleural effusion. Scarring is seen in the left lung base. The patient is status post right shoul brianna arthroplasty. No displaced right rib fracture is seen. No underlying pleural thickening or pneumothorax are seen. C holecystectomy clips are present. IMPRESSION: No evidence of displaced right rib fracture. POS: EAA
== END 2020-02-15 11:12 | disposition home or self-care (01) ==
LOC: SCSRAD 11:11
PROVIDERS: ATTEND Family Medicine
DX: Z23 Encounter for immunization (principal); R07.81 Pleurodynia
CPT/HCPCS: 80053; 80076; 81001; 83036; 85027; 85610; 85730; 87086; 87635; U0003

== ENCOUNTER 2020-02-26 13:46 | Inpatient (IN) | payer MEDICARE, OTHER ==
[2020-02-26 14:33] LABS: #Eosinphils 0.1 thou/uL (0.0-0.7); #Lymphocytes 0.7 thou/uL (1.20-3.40); #Monocytes 0.4 thou/uL (0.11-0.59); #Neutrophils 3.9 thou/uL (1.40-6.50); %Basophils 0.4 % (0.0-1.0); %Eosinophils 2.2 % (0.0-10.0); %Lymphocytes 13.5 % (21.0-51.0); %Monocytes 7.2 % (0.0-10.0); %Neutrophils 76.7 % (42.0-75.0); Hemoglobin 13.9 g/dL (14.0-18.0); Mean Corpuscular HGB CONC 33.9 g/dL (32.0-36.0); Mean Corpuscular Hemoglobin 32.9 pg (27.0-31.0); Mean Corpuscular Volume 97.3 fL (78.0-98.0); Mean Platelet Volume 6.9 fL (7.4-10.4); Platelet Count 169 thou/uL (130-400); RBC Distribution Width 13.1 % (11.5-14.5); Red Blood Cell (RBC) Count 4.22 mill/uL (4.70-6.10); White Blood Cell (WBC) Count 5.1 thou/uL (4.8-10.8)
--- NOTE | 2020-02-26 14:43 | RAD ---
XR Chest 1 View Portable HISTORY: Shortness of breath COMPARISON: 12/21/2018 FINDINGS: The heart size is normal. Changes of median sternotomy. A right-sided shoulder arthroplasty is again seen. There are chronic changes in the lung parenchyma without evidence of focal areas of consolidation, pneumothoraces or pleural effusions. IMPRESSION: No radiographic evidence of acute cardiopulmonary process.
[2020-02-26 14:54] LABS: ALT (SGPT) 17 U/L (8-55); AST (SGOT) 26 U/L (5-34); Albumin 3.6 g/dL (3.4-4.8); Alkaline Phosphatase 88 U/L (40-110); Anion Gap 12 mmol/L (10-20); BUN (Urea Nitrogen) 7 mg/dL (8.4-25.7); Bilirubin, Total 0.7 mg/dL (0.2-1.2); Calc. Creatinine Clearance 0 mL/min (70-130); Calcium 9.2 mg/dL (7.8-10.44); Carbon Dioxide 31 mmol/L (23-31); Chloride 102 mmol/L (98-107); Estimated GFR-MDRD 74; Globulin 3.7 g/dL (2.4-3.5); Glucose 123 mg/dL (80-115); Potassium 4.1 mmol/L (3.5-5.1); Protein, Total 7.3 g/dL (5.8-8.1); Sodium 141 mmol/L (136-145)
--- NOTE | 2020-02-26 16:32 | ULT ---
EXAM: Bilateral lower extremity venous Doppler US HISTORY: bilateral lower extremity edema. Shortness of breath, recent surgery FINDINGS: Grayscale, color-flow, Doppler evaluation, spectral analysis of the bilateral lower extremities venou s structures is performed with 2-D imaging. The bilateral common femoral, superficial femoral, popliteal, posterior tibial, proximal greater saphenous and profunda femoral veins are imaged. There is normal luminal compressibility, flow, and augmentation in the visualized deep venous structu res of the bilateral lower extremities. IMPRESSION: No evidence of a deep vein thrombosis in either lower extremity.
[2020-02-26] MEDS ORDERED: Aspirin Chewable 81 MG TAB ONE (17:40)
[2020-02-26] MEDS ORDERED: Furosemide 40 MG/4 ML VIAL ONE (17:40)
[2020-02-26] MEDS ORDERED: Acetaminophen 325 MG TAB PO PRN (18:13)
[2020-02-26] MEDS ORDERED: HYDROcodone/Acetaminophen 5/325 mg Tablet PO PRN (18:13)
[2020-02-26] MEDS ORDERED: Bisacodyl 5 MG TAB PO PRN (18:13)
[2020-02-26] MEDS ORDERED: Senokot S 8.6-50 MG TAB PO PRN (18:13)
--- NOTE | 2020-02-26 18:28 | PDOC.HHP ---
Hospitalist HPI - History of Present Illness sob History of Present Illness: The patient is a pleasant 69 years old gentleman who has significant past medical history of CAD with status post CABG, hypertension, congestive heart failure, atrial fib on Eliquis for stroke prophylaxis, who was recently discharged from the hospital on 02/23/2020, after he underwent open right hemicolectomy, and bilateral hydrocele colectomy. Patient tolerated procedure well. Patient stated he was doing well after procedure. However, for the last few days, he experienced progressive dyspnea with exertion. Patient also noted lower extremity swelling as well as increased abdominal girth. Denies of chest pain. Patient admit that he is not taking his Lasix like he supposed to. He also gained about 7 pounds in the past few days. He notified Dr. Goodrich's office and, and directed him to the ED for further evaluation. Initial work-up in the ED, patient was found in atrial fib, rate is controlled. Chest x-ray no significant change, BNP elevated. Venous Doppler showed no DVT. He was given a dose of 40 mg IV Lasix. Hospitalist was asked to admit the patient for CHF exacerbation. Patient report that he had underwent preoperative cardiac evaluation including echo and stress test with Dr. Aggarwal not too long ago, we will try to obtain records. Hospitalist ROS - Review of Systems Other: Complete review of systems have been assessed and discussed with the patient. Negative and positive pertinent symptoms noted in the HPI; ALL other systems are reviewed and negative. 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: reports: CVA Gastrointestinal: reports: GERD - Past Surgical History Past Surgical History: reports: no pertinent history Other Surgical History: Bilateral hydrocele colectomy, and right hemicolectomy - Family History Family History: reports: no pertinent history - Social History Smoking Status: Never smoker Alcohol: reports: None Drugs: reports: none Domestic Violence: Negative Activity level: independent ambulation Other Social History: Allergies No Known Drug Allergies Allergy (Verified 02/15/20 13:37) Home Medications: Medication Instructions Recorded Confirmed Type Pregabalin [Lyrica] 150 mg PO QAM 03/28/15 02/15/20 History Simvastatin 20 mg PO QAM 03/28/15 02/15/20 History Celecoxib [Celebrex] 200 mg PO QAM 11/26/15 02/15/20 History Pantoprazole [Protonix] 40 mg PO QAM 11/26/15 02/15/20 History Furosemide 40 mg PO QAM PRN 07/06/16 02/15/20 History metFORMIN HCl [Metformin HCl] 1 tab PO DAILY 10/15/16 02/15/20 History Hydrocodone-APAP 7.5-325/15 10 - 20 ml PO Q4HR PRN 10/28/16 02/15/20 History [Hydrocodone-Acetamin 7.5-325/15] Ondansetron [Zofran ODT] 4 mg PO Q4HR PRN 10/28/16 02/15/20 History Apixaban [Eliquis] 5 mg PO BID 12/19/19 02/15/20 History Metoprolol Succinate 25 mg PO DAILY 12/19/19 02/15/20 History HYDROcodone/Acetaminophen [[place] 1 each PO Q6HR PRN #30 tablet 02/23/20 Rx 5-325 Tablet] Ondansetron [Zofran ODT] 4 mg PO Q4HR PRN #10 tab 02/23/20 Rx - Exam General Appearance: NAD Eye: PERRL ENT: normocephalic atraumatic Neck: supple Heart: RRR Respiratory: rales Gastrointestinal: soft, distended Gastrointestinal - other findings: surgical wound appears healing well Extremities: 2+ LE edema Skin: normal turgor Neurological: cranial nerve grossly intact Musculoskeletal: normal tone Psychiatric: normal affect, normal behavior, A&O x 3 Hospitalist Results - Labs Result Diagrams: 02/26/20 14:21 02/26/20 14:21 Lab results: WBC 5.1 thou/uL (4.8-10.8) 02/26/20 14:21 Hgb 13.9 g/dL (14.0-18.0) L 02/26/20 14:21 Hct 41.1 % (42.0-52.0) L 02/26/20 14:21 MCV 97.3 fL (78.0-98.0) 02/26/20 14:21 Plt Count 169 thou/uL (130-400) 02/26/20 14:21 Neutrophils % 76.7 % (42.0-75.0) H 02/26/20 14:21 Sodium 141 mmol/L (136-145) 02/26/20 14:21 Potassium 4.1 mmol/L (3.5-5.1) 02/26/20 14:21 Chloride 102 mmol/L (98-107) 02/26/20 14:21 Carbon Dioxide 31 mmol/L (23-31) 02/26/20 14:21 BUN 7 mg/dL (8.4-25.7) L 02/26/20 14:21 Creatinine 1.00 mg/dL (0.7-1.3) 02/26/20 14:21 Glucose 123 mg/dL (80-115) H 02/26/20 14:21 Calcium 9.2 mg/dL (7.8-10.44) 02/26/20 14:21 Total Bilirubin 0.7 mg/dL (0.2-1.2) 02/26/20 14:21 AST 26 U/L (5-34) 02/26/20 14:21 ALT 17 U/L (8-55) 02/26/20 14:21 Alkaline Phosphatase 88 U/L (40-110) 02/26/20 14:21 Creatine Kinase 114 U/L (30-200) 02/26/20 14:21 Troponin I 0.018 ng/mL (< 0.028) 02/26/20 14:21 B-Natriuretic Peptide 179.3 pg/mL (0-100) H 02/26/20 14:21 Serum Total Protein 7.3 g/dL (5.8-8.1) 02/26/20 14:21 Albumin 3.6 g/dL (3.4-4.8) 02/26/20 14:21 - EKG Interpretation EKG: A. fib rhythm. - Radiology Interpretation Chest x-ray Status: image reviewed by me Additional Comment: No acute cardiopulmonary process Hospitalist H&P A/P - Plan Plan: This is a pleasant 69 years old gentleman who has significant past medical history of CAD with status post CABG, atrial fib, hypertension, dyslipidemia, who with recently discharged from the hospital on 02/23/2020 after successful right open hemicolectomy, and bilateral hydrocelectomy presented to ED with worsening short of breath and swelling. Acute on chronic heart failure, unknown type. --Admit to telemetry for IV diuresis. Continue cont serial cardiac enzyme --Patient report that he had an echo and stress test done recently. Will obtain records from Dr. Aggarwal --Consult his roto mixer operator in a.m. --Follow AM labs Atrial fib -rate controlled --Resume Eliquis, and beta-jemma Accelerated hypertension --Resume beta-jemma, prn hydralazine Reason status post open right colectomy and bilateral hydrocelectomy --wound healing well. will notify his surgeon in AM with regarding his admission Dyslipidemia --We will resume his home medication after reconciled Medical noncompliance --Patient was counseled with regard to adhering to his diuretics DVT ppx: Patient is on Eliquis GI ppx: We will resume PPI Code Status: Full code Anticipated Dispo: Home when medically stable
[2020-02-26 18:42] LABS: Troponin I 0.046 ng/mL (< 0.028)
[2020-02-26] MEDS ORDERED: Furosemide 40 MG/4 ML VIAL SLOW IVP SCH (19:00)
[2020-02-26 20:55] VITALS: BMI 38.0
[2020-02-26] MEDS ORDERED: Famotidine/PF 20 mg/2ml Vial SLOW IVP SCH (21:00)
[2020-02-26 21:13] LABS: Troponin I 0.031 ng/mL (< 0.028)
[2020-02-26] MEDS: Apixaban 5 MG TAB PO SCH (21:32)
[2020-02-27 04:36] LABS: Anion Gap 12 mmol/L (10-20); BUN (Urea Nitrogen) 7 mg/dL (8.4-25.7); Calc. Creatinine Clearance 123 mL/min (70-130); Calcium 9.2 mg/dL (7.8-10.44); Carbon Dioxide 35 mmol/L (23-31); Chloride 97 mmol/L (98-107); Estimated GFR-MDRD 83; Glucose 109 mg/dL (80-115); Potassium 3.2 mmol/L (3.5-5.1); Sodium 141 mmol/L (136-145)
[2020-02-27 05:19] LABS: Mean Corpuscular HGB CONC 31.4 g/dL (32.0-36.0); Mean Corpuscular Hemoglobin 30.4 pg (27.0-31.0); Mean Corpuscular Volume 96.6 fL (78.0-98.0); Mean Platelet Volume 6.7 fL (7.4-10.4); Platelet Count 201 thou/uL (130-400); RBC Distribution Width 13.1 % (11.5-14.5); Red Blood Cell (RBC) Count 4.27 mill/uL (4.70-6.10); White Blood Cell (WBC) Count 6.1 thou/uL (4.8-10.8)
[2020-02-27 05:20] LABS: Band 6 % (5-11); Eosinophils 4 % (0-10); Lymphocytes 13 % (21-51); MDiff Complete? YES; Monocytes 8 % (0-10); Neutrophil 69 % (42-75)
[2020-02-27] MEDS: Furosemide 40 MG/4 ML VIAL SLOW IVP SCH ×2 (06:21→14:14)
[2020-02-27] MEDS ORDERED: Potassium Chloride 20 MEQ TAB PO SCH (07:45)
[2020-02-27] MEDS: CeleCOXIB 100 MG CAP PO SCH (08:18)
[2020-02-27] MEDS: Pregabalin 50 MG CAP PO SCH (08:20)
[2020-02-27] MEDS: metFORMIN 500 MG TAB PO SCH (08:21)
[2020-02-27] MEDS: Atorvastatin Calcium 10 MG TAB PO SCH (08:21)
[2020-02-27] MEDS: Apixaban 5 MG TAB PO SCH ×2 (08:21→20:27)
[2020-02-27] MEDS: Lisinopril 20 MG TAB PO SCH (08:21)
[2020-02-27] MEDS ORDERED: Simvastatin 20 MG TAB PO SCH (09:00)
[2020-02-27] MEDS ORDERED: Non-Formulary Item 1 EACH (Celecoxib [Celebrex] 200 MG Cap) PO SCH (09:00)
[2020-02-27] MEDS ORDERED: metFORMIN 500 MG TAB PO SCH (09:00)
--- NOTE | 2020-02-27 14:55 | PDOC.HOSPP ---
- Subjective Subjective: patient was seen and examined at bedside. No acute events overnight. Patient was diuresed well, he had a net negative of 3.7 L fluid balance. His renal function remained stable. Blood pressure has improved. He is satting well on room air. Patient was seen by his primary segment producer. - Objective Vital Signs & Weight: Vital Signs (12 hours) Temp Pulse Resp BP BP BP BP 02/27/20 11:56 97.8 F 71 15 131/74 02/27/20 10:00 108/80 141/91 H 02/27/20 08:14 99.2 F 97 13 136/83 Pulse Ox 02/27/20 11:56 96 02/27/20 10:00 02/27/20 08:14 92 L Weight Weight 243 lb 4.8 oz I&O: 02/26/20 02/27/20 02/28/20 06:59 06:59 06:59 Intake Total 240 Output Total 4100 Balance -3860 Result Diagrams: 02/27/20 04:06 02/27/20 10:33 Additional Labs: Accuchecks 02/27/20 02/27/20 02/26/20 10:49 06:19 20:25 POC Glucose 151 H 112 H 111 H Radiology Reviewed by me: Yes EKG Reviewed by me: Yes Hospitalist ROS - Medication Medications: Active Medications Generic Name Dose Route Start Last Admin Trade Name Freq PRN Reason Stop Dose Admin Apixaban 5 mg 02/26/20 21:00 02/27/20 08:21 Apixaban 5 Mg Tab PO 5 mg BID GUME Administration Atorvastatin Calcium 10 mg 02/27/20 09:00 02/27/20 08:21 Atorvastatin Calcium 10 Mg Tab PO 10 mg QAM GUME Administration Celecoxib 200 mg 02/27/20 09:00 02/27/20 08:18 Celecoxib 100 Mg Cap PO 200 mg DAILY GUME Administration Furosemide 40 mg 02/27/20 06:00 02/27/20 14:14 Furosemide 40 Mg/4 Ml Vial SLOW IVP 40 mg 0600,1400 GUME Administration Lisinopril 20 mg 02/27/20 09:00 02/27/20 08:21 Lisinopril 20 Mg Tab PO 20 mg DAILY GUME Administration Metformin HCl 500 mg 02/27/20 09:00 02/27/20 08:21 Metformin 500 Mg Tab PO 500 mg DAILY GUME Administration Metoprolol Succinate 25 mg 02/27/20 09:00 02/27/20 08:21 Metoprolol Succinate Xl 25 Mg Tab PO 25 mg DAILY GUME Administration Pantoprazole Sodium 40 mg 02/27/20 09:00 02/27/20 08:20 Pantoprazole 40 Mg Tab PO 40 mg QAM GUME Administration Pregabalin 150 mg 02/27/20 09:00 02/27/20 08:20 Pregabalin 50 Mg Cap PO 150 mg QAM GUME Administration Senna/Docusate Sodium 2 tab 02/26/20 18:13 02/27/20 14:22 Senokot S 8.6-50 Mg Tab PO 2 tab BID PRN Administration Constipation Sodium Chloride 10 ml 02/27/20 09:00 02/27/20 08:22 Flush - Normal Saline 10 Ml Syringe IVF 10 ml Q12HR GUME Administration - Exam General Appearance: NAD Eye: PERRL ENT: normocephalic atraumatic Neck: supple, JVD Heart: RRR Respiratory: CTAB, no wheezes Gastrointestinal: soft Extremities: no cyanosis Skin: normal turgor Hosp A/P - Plan This is a pleasant 69 years old gentleman who has significant past m edical history of CAD with status post CABG, atrial fib, hypertension, dyslipidemia, who with recently discharged from the hospital on 02/23/2020 after successful right open hemicolectomy, and bilateral hydrocelectomy presented to ED with worsening short of breath and swelling. Acute on chronic heart failure, unknown type. --pt diuresed well. Continue to maintain negative fluid balance. --Patient report that he had an echo and stress test done recently. obtain records from Dr. Aggarwal, pending --Follow AM labs --Replete lytes --Cardiology consulted, pt was seen by his segment producer this AM. Recs pending Atrial fib -rate controlled --Resume Eliquis, and beta-jemma Accelerated hypertension --Resume beta-jemma, prn hydralazine --Add ERICK inhibitor Reason status post open right colectomy and bilateral hydrocelectomy --wound healing well. will notify his surgeon in AM with regarding his admission Dyslipidemia --Continue home medication Medical noncompliance --Patient was counseled with regard to adhering to his diuretics Hypokalemia --replaced. follow AM DVT ppx: Patient is on Eliquis GI ppx: We will resume PPI Code Status: Full code Anticipated Dispo: Home when medically stable
--- NOTE | 2020-02-27 16:17 | PRG ---
DATE OF SERVICE: 02/27/2020 SUBJECTIVE: The patient was readmitted with a bout of congestive heart failure. After diuresis, he feels much better. His abdominal swelling is down. No nausea or vomiting. He is passing flatus. OBJECTIVE: VITAL SIGNS: On exam, temperature 99.2, pulse 97, blood pressure 136/83. GENERAL: He looks good. ABDOMEN: Nontender. The incision is healing well. There is no evidence of infection. LABORATORY DATA: His white count is 6, hemoglobin and hematocrit are 13 and 41, platelet count 201. His electrolytes are fine. His biopsy results are back, shows sessile serrated polyp in the appendiceal orifice. No evidence of malignancy. ASSESSMENT: Doing well. PLAN: Continue treatment for CHF. Job ID: [id number]
--- NOTE | 2020-02-27 19:00 | CON ---
DATE OF CONSULTATION: 02/27/2020 REASON FOR CONSULTATION: Acute on chronic systolic heart failure. HISTORY OF PRESENT ILLNESS: Mr. Valencia is a pleasant 69-year-old gentleman, with a history of a mild cardiomyopathy, who recently underwent coronary angiography. He was found to have a severe standing rock underlying coronary artery disease. LVEF has been 45% to 50% in the past. His grafts were patent. He recently presented with shortness of breath, lower extremity edema, and increased weight. He recently underwent a hemicolectomy and did not take his Lasix at home. He has diuresed after receiving Lasix and feels much better. PAST MEDICAL HISTORY: CAD, status post bypass surgery; diabetes mellitus; hypertension; chronic atrial fibrillation, on Eliquis; and mild cardiomyopathy. HOME MEDICATIONS: Include; 1. Lyrica. 2. Tramadol. 3. Hydrocodone. 4. Isosorbide. 5. Simvastatin. 6. Metoprolol. 7. Eliquis. 8. Metformin. 9. Pantoprazole. 10. Celebrex. 11. Lasix. SOCIAL HISTORY: No current tobacco or alcohol use. REVIEW OF SYSTEMS: A 10-point review of systems is reviewed as above, otherwise negative. PHYSICAL EXAMINATION: VITAL SIGNS: Blood pressure 130/75, pulse 86, and temperature 97.9. General: The patient is a pleasant male, in no acute distress, appears stated age. Head, Eyes, Ears, Nose and Throat: Sclerae without icterus. Mouth: Moist mucous membranes, normal palate. Neck: No jugular venous distention. Carotid upstroke is brisk. No bruits bilaterally. Lungs: Mild crackles bilaterally. Heart: Regular rate and rhythm, normal S1 and S2. Abdomen: Soft, nontender, nondistended. Extremities: No edema. PERTINENT LABORATORY DATA: Hemoglobin , hematocrit 41.2. Creatinine 1.04. Troponin 0.031. IMPRESSION: 1. Acute on chronic systolic heart failure. 2. Atrial fibrillation. RECOMMENDATIONS: 1. Mr. Valencia does appear slightly fluid overloaded. He has diuresed. He has had a total of -4000 net output. 2. We will continue IV Lasix. We will transition to p.o. Lasix tomorrow. If stable, will be okay for discharge tomorrow in p.m. or a.m. Job ID: [id number]
[2020-02-28 05:12] LABS: Anion Gap 12 mmol/L (10-20); BUN (Urea Nitrogen) 13 mg/dL (8.4-25.7); Calc. Creatinine Clearance 109 mL/min (70-130); Calcium 9.1 mg/dL (7.8-10.44); Carbon Dioxide 35 mmol/L (23-31); Chloride 96 mmol/L (98-107); Estimated GFR-MDRD 74; Glucose 112 mg/dL (80-115); Potassium 3.4 mmol/L (3.5-5.1); Sodium 140 mmol/L (136-145)
[2020-02-28] MEDS: Furosemide 40 MG/4 ML VIAL SLOW IVP SCH (05:36)
[2020-02-28] MEDS ORDERED: Furosemide 40 MG TAB PO SCH (07:30)
[2020-02-28] MEDS ORDERED: Potassium Chloride 20 MEQ TAB PO SCH (08:00)
[2020-02-28] MEDS: CeleCOXIB 100 MG CAP PO SCH (08:46)
[2020-02-28] MEDS: Pregabalin 50 MG CAP PO SCH (08:47)
[2020-02-28] MEDS: Atorvastatin Calcium 10 MG TAB PO SCH (08:47)
[2020-02-28] MEDS: Lisinopril 20 MG TAB PO SCH (08:47)
[2020-02-28] MEDS: Apixaban 5 MG TAB PO SCH (08:49)
[2020-02-28] MEDS: metFORMIN 500 MG TAB PO SCH (08:49)
[2020-02-28 11:04] LABS: Hemoglobin 14.8 g/dL (14.0-18.0); Platelet Count 249 thou/uL (130-400)
--- NOTE | 2020-02-28 11:04 | DIS ---
DATE OF ADMISSION: 02/26/2020 DATE OF DISCHARGE: 02/28/2020 DISCHARGE DIAGNOSES: 1. Acute on chronic systolic heart failure. 2. Paroxysmal atrial fibrillation. 3. Accelerated hypertension. 4. Dyslipidemia. 5. Medical noncompliance. 6. Recent status post open right hemicolectomy and bilateral hydrocelectomy. CONSULTATIONS: 1. Cardiology, Dr. Aggarwal. 2. Surgery, Dr. Goodrich. PROCEDURE PERFORMED: None. LABORATORY DATA: WBC 6.1, hemoglobin 13.0, hematocrit 41.2, and platelets 201. Chemistry; sodium is 140, potassium 3.4, chloride 96, carbon dioxide 35, BUN 13, creatinine is 1.0. Troponins negative x3. BNP 179. ALT within normal limits. IMAGING STUDIES: 1. Chest x-ray, no radiographic evidence of cardiopulmonary process. 2. Bilateral lower extremity Doppler was negative for DVT. HISTORY OF PRESENT ILLNESS AND BRIEF HOSPITAL COURSE: The patient is a pleasant 69-year-old gentleman, who has significant past medical history of mild cardiomyopathy, who recently underwent coronary angiography with EF about 45% to 50% according to records from Dr. Aggarwal. His grafts were patent. He presented to the ED with complaint of shortness of breath and worsening lower extremity edema. Apparently, the patient was discharged from the hospital on 02/23/2020 after he underwent successful right open hemicolectomy and bilateral hydrocelectomy. He tolerated the procedure well. He reports that he is doing well after discharge from the hospital. However, in the past few days, his dyspnea progressively worsened as well as lower extremity edema. He has not measured his weight daily. He also noncompliant with Lasix per his . Initial workup in the ED showed that his BNP was elevated. Hospitalist was asked to admit the patient for CHF exacerbation. He was monitored on tele. He was started on IV diuretics with Lasix. He has diuresed well. He maintained negative fluid balance. He had a net negative of 6 L since he was admitted and his weight went down from 243 to 237. He is feeling well. His shortness of breath is back to his baseline. He was seen by Dr. Aggarwal and also Dr. Goodrich during his hospital stay. At this time, he has been cleared to discharge from the hospital. We also added lisinopril for blood pressure control. He also was given a script for his Lasix and potassium. The patient was advised to follow with his PCP in 1 to 2 weeks to recheck his renal function to make sure it remains stable. He will follow up with Dr. Goodrich as well as Dr. Aggarwal for ongoing care. DISPOSITION: The patient is stable to discharge home with family. ACTIVITY: As tolerated. DIET: Low-salt, heart-healthy diet. FOLLOWUP CARE: The patient to follow up with his PCP in 1 to 2 weeks. Follow up with Dr. Aggarwal for ongoing care of his CAD. Follow up with Dr. Goodrich for postop followup. PHYSICAL EXAMINATION: VITAL SIGNS: Temperature, he is afebrile; pulse 98; respiratory rate 15; he is saturating 98% on room air, and blood pressure 115/53. GENERAL APPEARANCE: The patient is alert and oriented x3. He is not in acute distress. HEENT: Normocephalic, atraumatic. Mucous membranes moist. NECK: Supple. No lymphadenopathy. No JVD. CARDIOVASCULAR: Regular rate and rhythm. S1 and S2 noted. No murmur. PULMONOLOGY: Clear to auscultation bilaterally. ABDOMEN: Soft. Positive for recent surgical wound, appears to be healing well. Dressing intact. MUSCULOSKELETAL: No joint pain or tenderness. Positive for trace edema bilaterally. NEUROLOGIC: Cranial 2 through 12 grossly intact. No focal weakness. PSYCHIATRIC: The patient is alert, oriented x3 with normal affect. DISCHARGE MEDICATIONS: New prescriptions for lisinopril 20 mg p.o. daily. He also was given a prescription for Lasix to refill 40 mg daily, also potassium supplement 20 mEq when he is taking his Lasix. The patient will be continued his home routine medications includin. Celebrex 20 mg p.o. daily. 2. Eliquis 5 mg b.i.d. 3. Lyrica 150 mg q.a.m. 4. Metformin 500 mg p.o. daily. 5. Metoprolol-XL 25 mg p.o. daily. 6. Simvastatin 20 mg q.a.m. 7. Protonix 40 mg q.a.m. 8. [place] 7.5/325 one tablet q.4 p.r.n. for pain. 9. Zofran 4 mg q.4 p.r.n. for nausea. Thank you for allowing us to participate in this patient's care. Discharge time spent, 35 minutes. Job ID: [id number]
[2020-02-28 12:01] VITALS: BP 121/74; TEMP 98.5
[2020-02-29 12:45] LABS: SARS-CoV-2 MS2 Positive; SARS-CoV-2 N Gene Negative; SARS-CoV-2 S Gene Negative; SARS-CoV-2 by NAA Not Detected (NotDetected); SARS-CoV-2 orf1ab Negative
--- NOTE | 2020-02-29 16:04 | PRG ---
DATE OF SERVICE: 02/28/2020 SUBJECTIVE: Mr. Valencia is doing well. He has diuresed significantly. I would recommend switching to p.o. Lasix. OBJECTIVE: VITAL SIGNS: Blood pressure 121/74, pulse 88, temperature 98.5. LUNGS: Minimal crackles bilaterally. HEART: Irregularly irregular. ABDOMEN: Soft, nontender, and nondistended. EXTREMITIES: No edema. IMPRESSION: 1. [id number] systolic heart failure. 2. Coronary artery disease. 3. Atrial fibrillation. RECOMMENDATIONS: 1. Change IV Lasix to p.o. Lasix. 2. Continue beta-jemma therapy and ERICK inhibitor therapy. 3. Continue statin treatment. 4. Okay from my standpoint to discharge home with close outpatient followup. Job ID: [id number]
== END 2020-02-28 12:46 | disposition home or self-care (01) | DRG 293 ==
LOC: ERS 13:46 → 2NO 17:53 → OBSVTOIN 18:13
PROVIDERS: ADMIT Family Medicine; ATTEND Family Medicine
DX: I11.0 Hypertensive heart disease with heart failure (principal); I50.23 Acute on chronic systolic (congestive) heart failure; I48.0 Paroxysmal atrial fibrillation; E78.5 Hyperlipidemia, unspecified; I25.10 Atherosclerotic heart disease of native coronary artery without angina pectoris; I48.91 Unspecified atrial fibrillation; K21.9 Gastro-esophageal reflux disease without esophagitis; E87.6 Hypokalemia; I42.9 Cardiomyopathy, unspecified; Z91.19 Patient's noncompliance with other medical treatment and regimen; Z90.49 Acquired absence of other specified parts of digestive tract; Z86.73 Personal history of transient ischemic attack (TIA), and cerebral infarction without residual deficits; Z79.899 Other long term (current) drug therapy; Z79.84 Long term (current) use of oral hypoglycemic drugs; Z79.01 Long term (current) use of anticoagulants; Z95.1 Presence of aortocoronary bypass graft
CPT/HCPCS: 36415; 36416; 71045; 80048; 80053; 82550; 83880; 84484; 85007; 85014; 85018; 85025; 85027; 85049; 87635; 93005; 93798; 93970; 96374; J1940; U0003

== ENCOUNTER 2022-08-24 11:21 | Inpatient (IN) | payer MEDICARE ==
[2022-08-24 11:59] LABS: #Eosinphils 0.3 thou/uL (0.0-0.7); #Lymphocytes 1.1 thou/uL (1.20-3.40); #Monocytes 0.5 thou/uL (0.11-0.59); #Neutrophils 4.1 thou/uL (1.40-6.50); %Basophils 0.7 % (0.0-1.0); %Eosinophils 4.2 % (0.0-10.0); %Lymphocytes 18.1 % (21.0-51.0); %Monocytes 8.4 % (0.0-10.0); %Neutrophils 68.7 % (42.0-75.0); Mean Corpuscular HGB CONC 33.1 g/dL (32.0-36.0); Mean Corpuscular Hemoglobin 33.2 pg (27.0-31.0); Mean Platelet Volume 7.4 fL (7.4-10.4); Platelet Count 157 10x3/uL (130-400); RBC Distribution Width 12.9 % (11.5-14.5); Red Blood Cell (RBC) Count 3.91 mill/uL (4.70-6.10)
[2022-08-24 12:20] LABS: ALT (SGPT) 10 U/L (8-55); AST (SGOT) 15 U/L (5-34); Alkaline Phosphatase 77 U/L (40-110); Anion Gap 14 mmol/L (10-20); BUN (Urea Nitrogen) 41 mg/dL (8.4-25.7); Bilirubin, Total 0.5 mg/dL (0.2-1.2); Calc. Creatinine Clearance 0 mL/min (70-130); Calcium 9.3 mg/dL (7.8-10.44); Carbon Dioxide 31 mmol/L (23-31); Chloride 100 mmol/L (98-107); Estimated GFR 32; Globulin 3.7 g/dL (2.4-3.5); Glucose 177 mg/dL (83-110); Potassium 4.6 mmol/L (3.5-5.1); Protein, Total 7.7 g/dL (5.8-8.1); Sodium 140 mmol/L (136-145)
[2022-08-24] MEDS ORDERED: Furosemide 20 MG/2 ML VIAL ONE (12:23)
[2022-08-24 14:10] LABS: Troponin I 0.012 ng/mL (< 0.028)
[2022-08-24] MEDS ORDERED: Guaifenesin DM 100-10/5 ML UDCUP PO PRN (14:35)
[2022-08-24] MEDS ORDERED: Dextrose 5% in Water 1,000 ML IV PRN (14:35)
[2022-08-24] MEDS ORDERED: Acetaminophen 325 MG TAB PO PRN (14:35)
[2022-08-24] MEDS ORDERED: Dextrose 50% Abboject 50 ML SYRINGE SLOW IVP PRN (14:35)
[2022-08-24] MEDS ORDERED: Ondansetron ODT 4 MG TAB PO PRN (14:35)
[2022-08-24] MEDS ORDERED: Senokot S 8.6-50 MG TAB PO PRN (14:35)
[2022-08-24] MEDS ORDERED: Furosemide 40 MG/4 ML VIAL SLOW IVP SCH (15:00)
[2022-08-24 15:50] VITALS: BMI 43.7
[2022-08-24 16:13] LABS: Troponin I 0.013 ng/mL (< 0.028)
[2022-08-24] MEDS: Apixaban 5 MG TAB PO SCH (20:59)
[2022-08-24] MEDS ORDERED: Famotidine 20 MG TAB PO SCH (21:00)
[2022-08-25 05:02] LABS: #Eosinphils 0.3 thou/uL (0.0-0.7); #Monocytes 0.6 thou/uL (0.11-0.59); #Neutrophils 4.3 thou/uL (1.40-6.50); %Basophils 0.4 % (0.0-1.0); %Eosinophils 4.3 % (0.0-10.0); %Lymphocytes 15.8 % (21.0-51.0); %Monocytes 9.6 % (0.0-10.0); Hemoglobin 12.9 g/dL (14.0-18.0); Mean Corpuscular HGB CONC 32.4 g/dL (32.0-36.0); Mean Corpuscular Hemoglobin 32.6 pg (27.0-31.0); Mean Platelet Volume 7.4 fL (7.4-10.4); Platelet Count 176 10x3/uL (130-400); RBC Distribution Width 12.9 % (11.5-14.5); Red Blood Cell (RBC) Count 3.94 mill/uL (4.70-6.10); White Blood Cell (WBC) Count 6.2 10x3/uL (4.8-10.8)
[2022-08-25 05:21] LABS: Anion Gap 12 mmol/L (10-20); BUN (Urea Nitrogen) 40 mg/dL (8.4-25.7); Calc. Creatinine Clearance 60 mL/min (70-130); Calcium 9.3 mg/dL (7.8-10.44); Carbon Dioxide 35 mmol/L (23-31); Chloride 99 mmol/L (98-107); Estimated GFR 34; Glucose 146 mg/dL (83-110); Potassium 4.1 mmol/L (3.5-5.1); Sodium 142 mmol/L (136-145)
[2022-08-25] MEDS: Furosemide 40 MG/4 ML VIAL SLOW IVP SCH ×2 (05:36→13:46)
[2022-08-25] MEDS: Apixaban 5 MG TAB PO SCH ×2 (08:21→20:27)
[2022-08-25 14:26] LABS: Bacteria/HPF None Seen HPF (None Seen); Bilirubin Negative (Negative); Blood, Urine Negative (Negative); Clarity Clear (Clear); Glucose, Urine (Dipstick) Normal (Negative); Ketone, Urine Negative (Negative); Leukocyte Negative Leu/uL (Negative); Nitrite Negative (Negative); Protein, Urine (Dipstick) Negative (Neg-Trace); RBC/HPF 0-3 HPF (0-3); Specific Gravity, Urine 1.013 (1.002-1.036); Squamous Epithelial None Seen HPF (0-3); WBC/HPF 0-3 HPF (0-3); pH, Urine 7.5 (5.0-9.0)
[2022-08-25] MEDS: HumaLOG 300 UNITS/3 ML VIAL SC PRN (20:27)
[2022-08-26 06:18] LABS: Anion Gap 14 mmol/L (10-20); BUN (Urea Nitrogen) 35 mg/dL (8.4-25.7); Calc. Creatinine Clearance 66 mL/min (70-130); Calcium 9.5 mg/dL (7.8-10.44); Carbon Dioxide 32 mmol/L (23-31); Chloride 97 mmol/L (98-107); Estimated GFR 39; Glucose 190 mg/dL (83-110); Potassium 3.6 mmol/L (3.5-5.1); Sodium 139 mmol/L (136-145)
[2022-08-26] MEDS: Furosemide 40 MG/4 ML VIAL SLOW IVP SCH ×2 (06:22→16:19)
[2022-08-26] MEDS: HumaLOG 300 UNITS/3 ML VIAL SC PRN ×3 (06:34→21:14)
[2022-08-26] MEDS: Apixaban 5 MG TAB PO SCH ×2 (09:32→21:14)
[2022-08-27 04:45] LABS: #Basophils 0.1 thou/uL (0.0-0.2); #Eosinphils 0.2 thou/uL (0.0-0.7); #Lymphocytes 1.3 thou/uL (1.20-3.40); #Monocytes 0.6 thou/uL (0.11-0.59); #Neutrophils 4.6 thou/uL (1.40-6.50); %Basophils 0.8 % (0.0-1.0); %Eosinophils 3.6 % (0.0-10.0); %Lymphocytes 19.2 % (21.0-51.0); %Monocytes 8.5 % (0.0-10.0); %Neutrophils 67.9 % (42.0-75.0); Mean Corpuscular HGB CONC 32.6 g/dL (32.0-36.0); Mean Corpuscular Hemoglobin 32.4 pg (27.0-31.0); Mean Corpuscular Volume 99.4 fl (78.0-98.0); Mean Platelet Volume 7.1 fL (7.4-10.4); Platelet Count 186 10x3/uL (130-400); RBC Distribution Width 12.8 % (11.5-14.5); Red Blood Cell (RBC) Count 4.63 mill/uL (4.70-6.10); White Blood Cell (WBC) Count 6.8 10x3/uL (4.8-10.8)
[2022-08-27 05:07] LABS: Anion Gap 17 mmol/L (10-20); BUN (Urea Nitrogen) 32 mg/dL (8.4-25.7); Calc. Creatinine Clearance 67 mL/min (70-130); Carbon Dioxide 28 mmol/L (23-31); Chloride 97 mmol/L (98-107); Estimated GFR 41; Glucose 159 mg/dL (83-110); Potassium 3.3 mmol/L (3.5-5.1); Sodium 139 mmol/L (136-145)
[2022-08-27] MEDS: Furosemide 40 MG/4 ML VIAL SLOW IVP SCH (05:45)
[2022-08-27] MEDS: HumaLOG 300 UNITS/3 ML VIAL SC PRN ×2 (06:26→11:11)
[2022-08-27] MEDS ORDERED: Potassium Chloride 20 MEQ TAB PO SCH (07:30)
[2022-08-27 07:53] VITALS: BP 121/76; TEMP 97.9
[2022-08-27] MEDS ORDERED: Pregabalin 75 MG CAP PO SCH (09:00)
[2022-08-27] MEDS ORDERED: Atorvastatin Calcium 10 MG TAB PO SCH (09:00)
[2022-08-27] MEDS: Apixaban 5 MG TAB PO SCH (09:07)
[2022-08-27] MEDS ORDERED: Latanoprost 0.005% Ophth Soln 2.5 ml Bottle L EYE SCH (21:00)
[2022-08-27] MEDS ORDERED: Furosemide 40 MG TAB PO SCH (21:00)
[2022-08-28] MEDS ORDERED: Metolazone 2.5 MG TAB PO SCH (09:00)
== END 2022-08-27 12:10 | disposition home or self-care (01) | DRG 306 ==
LOC: ERS 11:21 → ERHOLD 13:31 → 2NO 15:03
PROVIDERS: ADMIT Emergency Medicine; ATTEND Emergency Medicine
DX: I35.0 Nonrheumatic aortic (valve) stenosis (principal); I50.43 Acute on chronic combined systolic (congestive) and diastolic (congestive) heart failure; I42.9 Cardiomyopathy, unspecified; I48.20 Chronic atrial fibrillation, unspecified; N17.9 Acute kidney failure, unspecified; Z96.611 Presence of right artificial shoulder joint; Z96.653 Presence of artificial knee joint, bilateral; I25.10 Atherosclerotic heart disease of native coronary artery without angina pectoris; I11.0 Hypertensive heart disease with heart failure; E78.5 Hyperlipidemia, unspecified; E11.51 Type 2 diabetes mellitus with diabetic peripheral angiopathy without gangrene; E78.00 Pure hypercholesterolemia, unspecified; E87.6 Hypokalemia; Z79.84 Long term (current) use of oral hypoglycemic drugs; Z79.01 Long term (current) use of anticoagulants; Z95.1 Presence of aortocoronary bypass graft; Z79.899 Other long term (current) drug therapy; Z90.49 Acquired absence of other specified parts of digestive tract; Z98.890 Other specified postprocedural states; Z87.891 Personal history of nicotine dependence; Z98.49 Cataract extraction status, unspecified eye
CPT/HCPCS: 36415; 36416; 71045; 76770; 80048; 80053; 81001; 83880; 84484; 85025; 93005; 93306; 93798; 96374; J1815; J1940

== ENCOUNTER 2022-10-30 13:43 | Inpatient (IN) | payer MEDICARE ==
[~2022-10-30 13:43] MED LIST: Iopamidol-370 76% 500 ML MDV (1 ML CHARGE) ONE
[2022-10-30] MEDS ORDERED: NOREPINEPHRINE 8 MG/250 ML-D5W 250 ML ONE (14:06)
[2022-10-30 14:10] LABS: #Basophils 0.1 thou/uL (0.0-0.2); #Eosinphils 0.1 thou/uL (0.0-0.7); #Monocytes 0.8 thou/uL (0.11-0.59); #Neutrophils 10.9 thou/uL (1.40-6.50); %Basophils 0.6 % (0.0-1.0); %Eosinophils 0.4 % (0.0-10.0); %Lymphocytes 8.3 % (21.0-51.0); %Monocytes 5.9 % (0.0-10.0); %Neutrophils 84.5 % (42.0-75.0); Hemoglobin 14.5 g/dL (14.0-18.0); Mean Corpuscular HGB CONC 34.1 g/dL (32.0-36.0); Mean Corpuscular Volume 93.8 fl (78.0-98.0); Mean Platelet Volume 9.2 fL (7.4-10.4); Platelet Count 273 10x3/uL (130-400); RBC Distribution Width 13.8 % (11.5-14.5); Red Blood Cell (RBC) Count 4.53 mill/uL (4.70-6.10); White Blood Cell (WBC) Count 12.9 10x3/uL (4.8-10.8)
[2022-10-30 14:30] LABS: INR-International Normal Ratio 1.3; PTT 26.2 sec (22.9-36.1); Prothrombin Time 16.2 sec (12.0-14.7)
[2022-10-30 14:31] LABS: ALT (SGPT) 19 U/L (8-55); AST (SGOT) 23 U/L (5-34); Albumin 3.7 g/dL (3.4-4.8); Alkaline Phosphatase 67 U/L (40-110); Anion Gap 14 mmol/L (10-20); BUN (Urea Nitrogen) 30 mg/dL (8.4-25.7); Bilirubin, Total 0.9 mg/dL (0.2-1.2); Calc. Creatinine Clearance 0 mL/min (70-130); Calcium 9.8 mg/dL (7.8-10.44); Carbon Dioxide 37 mmol/L (23-31); Chloride 89 mmol/L (98-107); Estimated GFR 32; Globulin 3.6 g/dL (2.4-3.5); Glucose 279 mg/dL (83-110); Potassium 2.8 mmol/L (3.5-5.1); Protein, Total 7.3 g/dL (5.8-8.1); Sodium 137 mmol/L (136-145)
[2022-10-30 14:52] LABS: Magnesium 1.5 mg/dL (1.6-2.6)
[2022-10-30 15:15] LABS: CKMB 1.3 ng/mL (0-6.6)
[2022-10-30] MEDS ORDERED: Potassium Chloride 20 MEQ TAB ONE (15:17)
[2022-10-30] MEDS ORDERED: Magnesium 2 GM/50 ML BAG (IN WATER) ONE (15:17)
[2022-10-30] MEDS ORDERED: Cefepime 2 GM VIAL ONE (15:17)
[2022-10-30 15:33] LABS: Actual Bicarbonate (HCO3a) 26.6 mEq/L (22-28); Analyzer IN Cardio ER; Base Excess (BEa) 2.2 mEq/L (-2.0 to +3.0); CO2 Tension 40.8 mmHg (35.0-45.0); Calcium, Ionized (arterial) 1.08 mmol/L (1.12-1.30); Carboxyhemoglobin (COHb) 0.6 gm% (0.0-3.0); Hematocrit-ABG 44 % (42.0-52.0); Hemoglobin (Hb) 15.1 g/dL (14.0-18.0); O2 Tension (PaO2), arterial 81.5 mmHg (> 70.0); Potassium - ABG Lab 2.88 mmol/L (3.70-5.30); pH, Arterial 7.432 (7.35-7.45)
[2022-10-30 16:57] LABS: Puncture Site LRA
[2022-10-30 17:06] LABS: Bacteria/HPF None Seen HPF (None Seen); Bilirubin Negative (Negative); Blood, Urine Negative (Negative); CAUTI Indications for Culture Alt mental st,lethar; Clarity Clear (Clear); Glucose, Urine (Dipstick) 50 mg/dL (Negative); Ketone, Urine Negative (Negative); Leukocyte Negative Leu/uL (Negative); Nitrite Negative (Negative); Protein, Urine (Dipstick) Negative (Neg-Trace); RBC/HPF 0-3 HPF (0-3); Specific Gravity, Urine 1.017 (1.002-1.036); Squamous Epithelial None Seen HPF (0-3); Urobilinogen Normal mg/dL (Less than 2); WBC/HPF 0-3 HPF (0-3)
[2022-10-30 17:07] LABS: Urine Culture Reflex No No
[2022-10-30] MEDS ORDERED: Electrolyte Replacement Protocol 1 EACH FS SCH (17:30)
[2022-10-30] MEDS ORDERED: Glucagon 1 MG/ML KIT IM PRN (17:30)
[2022-10-30] MEDS ORDERED: Dextrose 5% in Water 1,000 ML IV PRN (17:30)
[2022-10-30] MEDS ORDERED: HumaLOG 300 UNITS/3 ML VIAL SC PRN (17:30)
[2022-10-30] MEDS ORDERED: Dextrose 50% Abboject 50 ML SYRINGE SLOW IVP PRN (17:30)
[2022-10-30] MEDS ORDERED: Acetaminophen 325 MG TAB PO PRN (17:30)
[2022-10-30] MEDS ORDERED: NOREPINEPHRINE 8 MG/250 ML-D5W 250 ML IVPB PRN (17:34)
[2022-10-30] MEDS ORDERED: Sodium Chloride 0.9% 1,000 ML IV SCH (17:45)
[2022-10-30] MEDS ORDERED: Metoclopramide HCl 10 MG/2 ML VIAL IVP PRN (17:46)
[2022-10-30 17:48] LABS: Lactic Acid 2.8 mmol/L (0.5-2.2)
[2022-10-30] MEDS ORDERED: Magnesium 2 GM/50 ML(in water) 2 GM in Premix Bag 1 BAG IVPB SCH (18:00)
[2022-10-30] MEDS ORDERED: Potassium Chloride 20 MEQ TAB PO SCH ×3 (18:00→22:00)
[2022-10-30] MEDS ORDERED: Electrolyte Replacement Protocol FS PRN (18:00)
[2022-10-30 18:10] LABS: Amphetamine Not Detected (NotDetected); Barbiturates Screen Not Detected (NotDetected); Benzodiazepine Screen Not Detected (NotDetected); Cocaine Metabolite Screen Not Detected (NotDetected); Methadone Not Detected (NotDetected); Methamphetamine Not Detected (NotDetected); Opiate Screen Not Detected (NotDetected); Oxycodone Screen Not Detected (NotDetected); Phencyclidine (PCP) Not Detected (NotDetected); THC/Cannabinoid Screen Not Detected (NotDetected); Tricyclic Screen Not Detected (NotDetected)
[2022-10-30 18:44] LABS: Troponin I 0.033 ng/mL (< 0.028)
[2022-10-30] MEDS: Atorvastatin Calcium 10 MG TAB PO SCH (20:06)
[2022-10-30] MEDS: Apixaban 5 MG TAB PO SCH (20:06)
[2022-10-30 20:29] VITALS: BMI 40.2
[2022-10-30] MEDS: Sodium Chloride 0.9% 1,000 ML IV SCH (21:55)
[2022-10-30 22:56] LABS: Troponin I 0.029 ng/mL (< 0.028)
[2022-10-31] MEDS: Sodium Chloride 0.9% 1,000 ML IV SCH ×3 (03:51→20:57)
[2022-10-31] MEDS: Cefepime 1 GM in Sodium Chloride 0.9% 100 ML IVPB SCH ×2 (04:00→17:22)
[2022-10-31 04:08] LABS: #Basophils 0.1 thou/uL (0.0-0.2); #Eosinphils 0.2 thou/uL (0.0-0.7); #Monocytes 0.7 thou/uL (0.11-0.59); #Neutrophils 6.3 thou/uL (1.40-6.50); %Basophils 0.7 % (0.0-1.0); %Eosinophils 1.8 % (0.0-10.0); %Monocytes 7.5 % (0.0-10.0); %Neutrophils 72.7 % (42.0-75.0); Hemoglobin 13.4 g/dL (14.0-18.0); Mean Corpuscular HGB CONC 33.3 g/dL (32.0-36.0); Mean Corpuscular Hemoglobin 31.8 pg (27.0-31.0); Mean Corpuscular Volume 95.5 fl (78.0-98.0); Platelet Count 233 10x3/uL (130-400); RBC Distribution Width 14.2 % (11.5-14.5); Red Blood Cell (RBC) Count 4.22 mill/uL (4.70-6.10); White Blood Cell (WBC) Count 8.7 10x3/uL (4.8-10.8)
[2022-10-31 04:32] LABS: Anion Gap 13 mmol/L (10-20); BUN (Urea Nitrogen) 28 mg/dL (8.4-25.7); Calc. Creatinine Clearance 71 mL/min (70-130); Calcium 8.7 mg/dL (7.8-10.44); Carbon Dioxide 30 mmol/L (23-31); Chloride 97 mmol/L (98-107); Estimated GFR 46; Glucose 226 mg/dL (83-110); Potassium 3.1 mmol/L (3.5-5.1); Sodium 137 mmol/L (136-145)
[2022-10-31] MEDS: HumaLOG 300 UNITS/3 ML VIAL SC PRN ×3 (06:30→18:37)
[2022-10-31] MEDS ORDERED: Magnesium 2 GM/50 ML(in water) 2 GM in Premix Bag 1 BAG IVPB SCH (08:00)
[2022-10-31] MEDS ORDERED: Potassium Chloride 20 MEQ TAB PO SCH (08:00)
[2022-10-31] MEDS: Apixaban 5 MG TAB PO SCH ×2 (08:40→20:54)
[2022-10-31] MEDS ORDERED: Cosyntropin 250 MCG VIAL SLOW IVP SCH (15:15)
[2022-10-31] MEDS: Atorvastatin Calcium 10 MG TAB PO SCH (20:54)
[2022-11-01 03:56] LABS: #Basophils 0.1 thou/uL (0.0-0.2); #Eosinphils 0.2 thou/uL (0.0-0.7); #Monocytes 0.4 thou/uL (0.11-0.59); #Neutrophils 5.4 thou/uL (1.40-6.50); %Basophils 0.8 % (0.0-1.0); %Eosinophils 3.2 % (0.0-10.0); %Lymphocytes 14.2 % (21.0-51.0); %Monocytes 5.5 % (0.0-10.0); Hemoglobin 13.4 g/dL (14.0-18.0); Mean Corpuscular HGB CONC 32.6 g/dL (32.0-36.0); Mean Corpuscular Hemoglobin 32.1 pg (27.0-31.0); Mean Corpuscular Volume 98.3 fl (78.0-98.0); Mean Platelet Volume 9.5 fL (7.4-10.4); Platelet Count 185 10x3/uL (130-400); RBC Distribution Width 14.6 % (11.5-14.5); Red Blood Cell (RBC) Count 4.18 mill/uL (4.70-6.10); White Blood Cell (WBC) Count 7.1 10x3/uL (4.8-10.8)
[2022-11-01] MEDS: Cefepime 1 GM in Sodium Chloride 0.9% 100 ML IVPB SCH (04:00)
[2022-11-01 04:14] LABS: Anion Gap 11 mmol/L (10-20); BUN (Urea Nitrogen) 16 mg/dL (8.4-25.7); Calc. Creatinine Clearance 103 mL/min (70-130); Calcium 8.3 mg/dL (7.8-10.44); Carbon Dioxide 25 mmol/L (23-31); Chloride 101 mmol/L (98-107); Estimated GFR 71; Glucose 130 mg/dL (83-110); Potassium 3.2 mmol/L (3.5-5.1); Sodium 134 mmol/L (136-145)
[2022-11-01] MEDS: Sodium Chloride 0.9% 1,000 ML IV SCH (05:23)
[2022-11-01] MEDS ORDERED: Potassium Chloride 20 MEQ TAB PO SCH (08:00)
[2022-11-01] MEDS: Apixaban 5 MG TAB PO SCH ×2 (08:42→20:18)
[2022-11-01] MEDS ORDERED: Cefepime 2 GM in Sodium Chloride 0.9% 100 ML IVPB SCH (17:00)
[2022-11-01] MEDS: HumaLOG 300 UNITS/3 ML VIAL SC PRN (18:35)
[2022-11-01] MEDS: Atorvastatin Calcium 10 MG TAB PO SCH (20:18)
[2022-11-01] MEDS: Amoxicillin/Potassium Clav 875 MG TAB PO SCH (20:18)
[2022-11-02 04:57] LABS: #Basophils 0.1 thou/uL (0.0-0.2); #Eosinphils 0.3 thou/uL (0.0-0.7); #Monocytes 0.4 thou/uL (0.11-0.59); #Neutrophils 6.7 thou/uL (1.40-6.50); %Basophils 0.6 % (0.0-1.0); %Monocytes 5.2 % (0.0-10.0); Hemoglobin 12.8 g/dL (14.0-18.0); Mean Corpuscular HGB CONC 34.1 g/dL (32.0-36.0); Mean Corpuscular Hemoglobin 32.5 pg (27.0-31.0); Mean Corpuscular Volume 95.2 fl (78.0-98.0); Mean Platelet Volume 8.9 fL (7.4-10.4); Platelet Count 186 10x3/uL (130-400); RBC Distribution Width 14.1 % (11.5-14.5); Red Blood Cell (RBC) Count 3.94 mill/uL (4.70-6.10); White Blood Cell (WBC) Count 8.3 10x3/uL (4.8-10.8)
[2022-11-02 05:27] LABS: Anion Gap 13 mmol/L (10-20); BUN (Urea Nitrogen) 11 mg/dL (8.4-25.7); Calc. Creatinine Clearance 123 mL/min (70-130); Calcium 8.5 mg/dL (7.8-10.44); Carbon Dioxide 26 mmol/L (23-31); Chloride 102 mmol/L (98-107); Estimated GFR 86; Glucose 140 mg/dL (83-110); Potassium 3.1 mmol/L (3.5-5.1); Sodium 138 mmol/L (136-145)
[2022-11-02] MEDS ORDERED: Potassium Chloride 20 MEQ TAB PO SCH (08:00)
[2022-11-02] MEDS ORDERED: Furosemide 20 MG TAB PO SCH (09:00)
[2022-11-02] MEDS: Apixaban 5 MG TAB PO SCH ×2 (09:37→20:49)
[2022-11-02] MEDS: Amoxicillin/Potassium Clav 875 MG TAB PO SCH ×2 (09:37→20:49)
[2022-11-02] MEDS ORDERED: Ondansetron ODT 4 MG TAB PO PRN (10:10)
[2022-11-02] MEDS: Diclofenac 1% 100 GM GEL TP SCH ×3 (15:21→20:51)
[2022-11-03 04:50] LABS: Hemoglobin 13.4 g/dL (14.0-18.0); Platelet Count 168 10x3/uL (130-400)
[2022-11-03 05:12] LABS: Anion Gap 6 mmol/L (10-20); BUN (Urea Nitrogen) 13 mg/dL (8.4-25.7); Calc. Creatinine Clearance 111 mL/min (70-130); Calcium 8.8 mg/dL (7.8-10.44); Carbon Dioxide 25 mmol/L (23-31); Chloride 109 mmol/L (98-107); Estimated GFR 75; Glucose 130 mg/dL (83-110); Potassium 3.3 mmol/L (3.5-5.1); Sodium 137 mmol/L (136-145)
[2022-11-03] MEDS ORDERED: Potassium Chloride 20 MEQ TAB PO SCH ×2 (08:00→14:00)
[2022-11-03] MEDS ORDERED: Furosemide 20 MG TAB PO SCH (09:00)
[2022-11-03] MEDS: Apixaban 5 MG TAB PO SCH (10:14)
[2022-11-03] MEDS: Furosemide 40 MG TAB PO SCH ×2 (10:14→14:22)
[2022-11-03] MEDS: Amoxicillin/Potassium Clav 875 MG TAB PO SCH (10:14)
[2022-11-03] MEDS: Diclofenac 1% 100 GM GEL TP SCH ×2 (10:15→14:22)
[2022-11-03 12:15] VITALS: TEMP 98.5
[2022-11-03 14:59] VITALS: BP 121/75
== END 2022-11-03 14:59 | disposition home or self-care (01) | DRG 872 ==
LOC: ERS 13:43 → CCU 18:51 → 2NO 11-01 15:22
PROVIDERS: ADMIT Family Medicine; ATTEND Internal Medicine
PROC: 4A133R1 Monitoring of Arterial Saturation, Peripheral, Percutaneous Approach (ICD-10-PCS; principal; 2022-10-30)
PROC: 3E033XZ Introduction of Vasopressor into Peripheral Vein, Percutaneous Approach (ICD-10-PCS; 2022-10-30)
DX: R57.1 Hypovolemic shock (principal); I50.22 Chronic systolic (congestive) heart failure; I48.21 Permanent atrial fibrillation; I42.9 Cardiomyopathy, unspecified; Z68.41 Body mass index [BMI] 40.0-44.9, adult; N17.9 Acute kidney failure, unspecified; I13.0 Hypertensive heart and chronic kidney disease with heart failure and stage 1 through stage 4 chronic kidney disease, or unspecified chronic kidney disease; E86.0 Dehydration; E87.70 Fluid overload, unspecified; E87.6 Hypokalemia; N18.9 Chronic kidney disease, unspecified; E78.5 Hyperlipidemia, unspecified; E11.40 Type 2 diabetes mellitus with diabetic neuropathy, unspecified; K21.9 Gastro-esophageal reflux disease without esophagitis; Z96.611 Presence of right artificial shoulder joint; E83.42 Hypomagnesemia; M76.60 Achilles tendinitis, unspecified leg; Z66 Do not resuscitate; I35.0 Nonrheumatic aortic (valve) stenosis; Z96.653 Presence of artificial knee joint, bilateral; I25.10 Atherosclerotic heart disease of native coronary artery without angina pectoris; E11.22 Type 2 diabetes mellitus with diabetic chronic kidney disease; E66.01 Morbid (severe) obesity due to excess calories; Z79.01 Long term (current) use of anticoagulants; Z95.1 Presence of aortocoronary bypass graft; Z98.890 Other specified postprocedural states; Z98.84 Bariatric surgery status; Z79.899 Other long term (current) drug therapy; Z90.49 Acquired absence of other specified parts of digestive tract; Z87.891 Personal history of nicotine dependence; Z82.49 Family history of ischemic heart disease and other diseases of the circulatory system
CPT/HCPCS: 36415; 36416; 36556; 36600; 71045; 71275; 80048; 80053; 80306; 80400; 81001; 82533; 82553; 82805; 83605; 83735; 83880; 84443; 84484; 85014; 85018; 85025; 85049; 85610; 85730; 86850; 86900; 86901; 87040; 87086; 93005; 93306; 96365; 96367; J0692; J0834; J1815; J3475; J3490; J7050; Q9967